=== PATIENT | female | born 1965 | race African-American/Black ===

== ENCOUNTER 2020-08-09 14:23 | Emergency (ER) | payer BC, SELFPAY ==
[2020-08-09 14:24] VITALS: BP 159/107; PULSE 101; RESP 18; TEMP 36.3; O2SAT 99
--- NOTE | 2020-08-09 14:47 | ECG_ITS ---
Measurements Intervals [place] Rate: 86 P: -10 [place]: 169 QRS: 48 QRSD: 91 T: 65 QT: 360 QTc: 433 Interpretive Statements SINUS RHYTHM NONSPECIFIC T-WAVE ABNORMALITY- HIGH LATERAL LEADS BASELINE WANDER- V4 BORDERLINE ECG Electronically Signed On 08-09-2020 18:05:03 CDT by Quan Harrington D.O.
--- NOTE | 2020-08-09 15:11 | ED.GENADULT ---
HPI - General Adult General Chief complaint: Extremity Injury, Upper Stated complaint: left arm pain and numbness Time Seen by Provider: 08/09/20 14:39 Source: patient and family Mode of arrival: ambulatory Limitations: no limitations History of Present Illness HPI narrative: Patient is a 55-year-old female who presents with left arm pain noting aching pain to the left shoulder trapezius musculature that radiates intermittently down the arm with some tingling and weakness patient notes that the symptoms began today and had a similar occurrence a week ago that was throughout the day and resolved. Patient denies injury trauma or similar occurrence in the past. Patient has not taken anything for her symptoms nothing is made the pain better or worse. Patient denies headache lightheadedness dizziness neck pain chest pain shortness of breath Related Data Home Medications Medication Instructions Recorded Confirmed amlodipine 08/09/20 lorazepam 08/09/20 losartan-hydrochlorothiazide 1 tablet PO DAILY 08/09/20 venlafaxine mg PO 08/09/20 zolpidem 08/09/20 Allergies Allergy/AdvReac Type Severity Reaction Status Date / Time latex Allergy Unknown Itching Verified 08/09/20 14:26 Contrast Media Allergy Severe ITCHING Uncoded 08/09/20 14:26 Review of Systems Review of Systems: All systems reviewed & are unremarkable except as noted in HPI and below PMFSH Past Medical History Medical History (Updated 08/09/20 @ 15:39 by Reuben Swain PA-C) Anxiety Depression Social History Social History Smoking status: Light tobacco smoker Second hand tobacco smoke exposure: No Smoking end date: 11/21/12 Alcohol intake: never Gender identity (if verbalized by the patient): Female Exam Narrative: Exam Narrative: GENERAL: Well-appearing, well-nourished, and in no acute distress. HEAD: Normocephalic, atraumatic. EYES: PERRLA and EOMI. ENT: Nares clear, no rhinorrhea or epistaxis. Mucous membranes moist. Oropharynx without tonsillar hypertrophy exudate or other lesions. NECK: Supple. No adenopathy or masses. No carotid bruits or JVD CHEST: Clear to auscultation. No respiratory distress. No wheezes rales or rhonchi HEART: Regular rate and rhythm. No murmur heard. Normal peripheral pulses. EXTREMITIES: Normal range of motion. No edema. No cervical or thoracic tenderness to palpation. Patient notes some tenderness of the trapezius musculature but denies any tenderness of the shoulder elbow or remainder of the left upper extremity SKIN: Warm, dry, no rash. NEURO: No focal deficits. Alert and oriented x3. Neurovascularly intact. Capillary refill less than 2 seconds PSYCH: Normal mood and affect. Course Course Emergency Course: Patient was given medications in the emergency department with improvement patient felt appropriate for outpatient reevaluation with likely musculoskeletal etiology of her symptoms will be referred to her orthopedist and primary care for continued evaluation and provided with reasons to return Vital Signs Vital signs: Vital Signs Temperature 97.4 F L 08/09/20 14:24 Pulse Rate 101 H 08/09/20 14:24 Respiratory Rate 18 08/09/20 14:24 Blood Pressure 159/107 H 08/09/20 14:24 Pulse Oximetry 99 08/09/20 14:24 Temperature 97.4 F L 08/09/20 14:24 Pulse Rate 101 H 08/09/20 14:24 Respiratory Rate 18 08/09/20 14:24 Blood Pressure 159/107 H 08/09/20 14:24 Pulse Oximetry 99 08/09/20 14:24 Medical Decision Making MDM Narrative Medical decision making narrative: Patients injury or pain is consistent with musculoskeletal etiology. No signs of neurological or vascular compromise on exam. Compartments and tisues are soft without signs of compartment syndrome. Pain is felt appropriate for further evaluation on an outpatient basis. Vital Signs Vital Signs: Vital Signs Temperature 97.4 F L 08/09/20 14:24 Pulse Rate 10
[2020-08-09] MEDS: KETOROLAC (*BKC) 60 MG/2 ML VIAL IM (15:30)
[2020-08-09] MEDS: diazePAM (*CRX) 5 MG TABLET PO (15:31)
[2020-08-09 16:04] VITALS: BP 136/76; PULSE 85; RESP 18; O2SAT 97
== END 2020-08-09 16:06 | disposition home or self-care (01) ==
PROVIDERS: Emergency Provider Emergency Medicine; PCP Family Medicine
DX: M79.602 Pain in left arm (principal); R94.31 Abnormal electrocardiogram [ECG] [EKG]
CPT/HCPCS: 93005; 96372; 99283; A9270; J1885

== ENCOUNTER 2020-09-02 12:35 | Outpatient (CLI) | payer BC, SELFPAY ==
--- NOTE | ~2020-09-02 | XR_ITS ---
EXAMINATION: XR shoulder LT min 2V DATE: 09/02/2020 13:04 INDICATION: Left arm pain. TECHNIQUE: 5 views of left shoulder were obtained. COMPARISON: None. FINDINGS: Bone alignment is normal. No fracture. There is mild osteoarthritis of glenohumeral joint. Acromioclavicular joint is normal. IMPRESSION: 1. Mild glenohumeral joint osteoarthritis. Reviewed, dictated and finalized at location A.
--- NOTE | ~2020-09-02 | XR_ITS ---
EXAMINATION:XR_[id number]_CR DATE: 09/02/2020 13:04 INDICATION: Neck pain TECHNIQUE: AP, lateral, and odontoid views of the cervical spine are provided. COMPARISON: None FINDINGS: Alignment is normal. The odontoid is intact. No fracture is identified. The vertebral body heights are maintained. There is moderate loss of intervertebral disc space height at C5-6 and C6-7. Small degenerative osteophytes project from the anterior endplates of multiple vertebral bodies. Ther e is mild facet and uncovertebral joint osteoarthritis. Prevertebral soft tissues are normal. IMPRESSION: 1. Mild to moderate cervical spondylosis without acute findings. Reviewed, dictated and finalized at location A.
== END 2020-09-02 12:36 | disposition home or self-care (01) ==
PROVIDERS: PCP Family Medicine; Visit Provider Family Medicine
DX: M19.012 Primary osteoarthritis, left shoulder (principal); M47.812 Spondylosis without myelopathy or radiculopathy, cervical region
CPT/HCPCS: 72040; 73030

== ENCOUNTER → 2021-05-19 15:37 | Outpatient (CLI) | payer BC, SELFPAY ==
--- NOTE | ~2021-05-19 | MM_ITS ---
EXAMINATION: MM screening tri BI w osiel HISTORY: Screening TECHNIQUE: Craniocaudal and mediolateral oblique 3-D tomosynthesis images were obtained and synthetic 2-D images were generated. CAD analysis was submitted and interpreted. COMPARISON: No prior mammogram is available for comparison at this institution. BREAST PARENCHYMAL COMPOSITION: The breasts are almost entirely fatty. FINDINGS: There are bilateral breast masses scattered throughout both breasts, most likely benign, al though comparison to previous mammograms recommended. IMPRESSION: 1. Probable benign bilateral breast masses. Recommend comparison to previous outside mammograms. BI-RADS Category 0: Incomplete: Needs additional imaging evaluation. Reviewed, dictated and finalized at location A. IMPRESSION: 1. Probable benign bilateral breast masses. Recommend comparison to previous ou ide mammograms. BI-RADS Category 0: Incomplete: Needs additional imaging evaluation.
== END ==
PROVIDERS: PCP Family Medicine; Visit Provider Family Medicine
DX: Z12.31 Encounter for screening mammogram for malignant neoplasm of breast (principal); R92.8 Other abnormal and inconclusive findings on diagnostic imaging of breast
CPT/HCPCS: 77063; 77067

== ENCOUNTER 2021-06-29 09:12 | Outpatient (CLI) | payer BC, SELFPAY ==
--- NOTE | ~2021-06-29 | MMUS_ITS ---
EXAMINATION: MM diagnostic tri RT w osiel, US breast RT limited HISTORY: Follow-up right breast mass TECHNIQUE: Additional 3-D tomosynthesis images of the right breast were performed and synthetic 2-D i mages were generated. CAD analysis was submitted and interpreted. High resolution Limited right breas t ultrasound was performed. COMPARISON: 05/19/2021 BREAST PARENCHYMAL COMPOSITION: Breast composition is almost entirely fatty. FINDINGS: MAMMOGRAPHIC FINDINGS: There is a 5 mm mass involving the medial aspect of the right breast, best seen on CC view. There are no suspicious calcifications or architectural distortion. ULTRASOUND: Limited right breast: At 3:00, 6 cm from the nipple, there is a 6 mm cyst. This corresponds to the ar ea of mammographic concern. No sonographic evidence for malignancy. IMPRESSION: 1. No evidence for malignancy in the right breast. 2. Routine yearly screening mammogram and regular clinical breast examination are recommended. BI-RADS Category 2: Benign finding(s). Reviewed, dictated and finalized at location A. IMPRESSION: 1. No evidence for malignancy in the right breast. 2. Routine yearly screening mammogram and regular clinical breast examination a re recommended. BI-RADS Category 2: Benign finding(s).
== END 2021-06-29 09:13 ==
PROVIDERS: PCP Family Medicine; Visit Provider Family Medicine
DX: R92.8 Other abnormal and inconclusive findings on diagnostic imaging of breast (principal)
CPT/HCPCS: 76642; 77061; 77065; G0279

== ENCOUNTER 2021-10-09 16:12 | Outpatient (CLI) | payer BC, SELFPAY ==
--- NOTE | ~2021-10-09 | CT_ITS ---
EXAMINATION: CT abdomen pelvis wo con DATE: 10/09/2021 16:36 INDICATION: Unspecified abdominal pain TECHNIQUE: Computed tomography (CT) of the abdomen and pelvis was performed without intravenous contr ast. Automated exposure control and iterative reconstruction technique were employed. The dose-length product was 855.85 mGy-cm. COMPARISON: None FINDINGS: A couple 3 mm nodules in the right lower lobe and lingula. Heart size is normal. No pericardial or pl eural effusion. Diffuse hepatic steatosis. Decompressed gallbladder, spleen, pancreas, bilateral adre nal glands and kidneys are normal. There is mild colonic diverticulosis with a sigmoid predominance. There is no adjacent inflammatory change to suggest diverticulitis. No bowel obstruction. The append ix is not visualized. No pericecal inflammatory change to suggest acute appendicitis. Small fat-conta ining umbilical hernia. Bladder is normal. The uterus is not identified and has likely been surgicall y resected. No free intraperitoneal gas or fluid. No pathologically enlarged abdominal or pelvic lymp hadenopathy. Mild degenerative skeletal changes in the spine and at the bilateral hips. Small bone is land at the right posterior iliac spine. IMPRESSION: 1. No acute intra-abdominal/pelvic process. 2. Diffuse hepatic steatosis. 3. Mild sigmoid diverticulosis. 4. Small fat-containing umbilical hernia. Reviewed, dictated and finalized at location A. 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
== END 2021-10-09 16:13 | disposition home or self-care (01) ==
LOC: ANHIMG 16:17
PROVIDERS: PCP Family Medicine; Visit Provider Family Medicine
DX: R10.9 Unspecified abdominal pain (principal); K76.0 Fatty (change of) liver, not elsewhere classified; K57.90 Diverticulosis of intestine, part unspecified, without perforation or abscess without bleeding; K42.9 Umbilical hernia without obstruction or gangrene
CPT/HCPCS: 74176

== ENCOUNTER 2022-04-24 19:35 | Emergency (ER) | payer BC, SELFPAY ==
--- NOTE | ~2022-04-24 | CT_ITS ---
EXAMINATION: CT abdomen pelvis wo con DATE: 04/24/2022 22:17 INDICATION: Hematuria TECHNIQUE: Computed tomography (CT) of the abdomen and pelvis was performed without intravenous contr ast. The dose-length product (DLP) was 884.68 mGy-cm. Automated exposure control and iterative recons truction technique were employed. COMPARISON: 10/09/2021 FINDINGS: A stable 3 mm nodule of the right lower lobe is consistent with old granulomatous disease. The heart size is normal. There is a small sliding hiatal hernia. The liver is diffusely low in atten uation when compared with the spleen, consistent with hepatic steatosis. The spleen, pancreas, gallbl adder, and adrenal glands are normal. The kidneys are unremarkable. No stones are identified in the k idneys, ureters, or bladder. There is no hydronephrosis or hydroureter. There is calcified atheroscle rosis of the aorta and many of the other arteries. No pathologically enlarged abdominal or pelvic lym ph nodes are identified. There is a small fat-containing umbilical hernia. IMPRESSION: 1. No CT correlate for the patient's symptoms. No urolithiasis identified. 2. Diffuse hepatic steatosis. Reviewed, dictated and finalized at location A.
[2022-04-24 20:04] VITALS: BP 149/84; PULSE 116; RESP 16; TEMP 36.6; O2SAT 100
--- NOTE | 2022-04-24 20:09 | PC.NURSE ---
pt reports she is unable to urinate at this time. It is straight blood. how do you think you will get a sample RN explained need for urine to test to check for blood and bacteria. Pt states she is unable to go at this time.
[2022-04-24 20:19] LABS: Basophils Percent Auto 0.3 % (0.2-1.2); Eosinophils Absolute Auto 0.1 K/mm3 (0-0.3); Eosinophils Percent Auto 0.7 % (0-4.4); Hematocrit 40.1 % (37.0-47.0); Hemoglobin 12.5 g/dL (12.0-15.0); Immature Granulocyte Absolute 0.06 K/mm3 (0.00-0.031); Immature Granulocyte Percent A 0.4 % (0-0.5); Lymphocytes Absolute Auto 4.21 K/mm3 (0.9-3.2); Lymphocytes Percent Auto 27.7 % (18.3-44.2); Mean Corpuscular HGB Conc 31.2 g/dl (32-36); Mean Corpuscular Hemoglobin 26.3 pg (26-34); Mean Corpuscular Volume 84.4 fl (80-100); Monocytes Absolute Auto 0.7 K/mm3 (0.1-0.6); Monocytes Percent Auto 4.6 % (2.6-8.5); Neutrophils Absolute Auto 10.1 K/mm3 (1.3-6.7); Neutrophils Percent Auto 66.3 % (45.5-73.1); Platelet Count Result 346 k/mm3 (150-375); Red Blood Count 4.75 M/mm3 (4.2-5.4); Red Cell Distribution Width 13.3 % (11.5-14.5); White Blood Count 15.2 K/mm3 (4.5-10.0)
[2022-04-24 20:34] LABS: Alanine Aminotransferase 41 U/L (6-35); Albumin Level 4.6 g/dL (3.5-5.1); Alkaline Phosphatase 78 U/L (38-126); Anion Gap 9 mmol/L (8-16); Aspartate Amino Transferase 40 U/L (14-36); Bilirubin,Total 0.3 mg/dL (0.2-1.3); Blood Urea Nitrogen 13 mg/dL (7-17); Carbon Dioxide 27 mmol/L (22-30); Chloride 101 mmol/L (98-107); Estimated CRCL calculation 59 ml/min; Estimated Glomerular Filt Rate 58; Glucose 187 mg/dL (65-110); Lipase 37 U/L (23-300); Sodium 137 mmol/L (137-145)
[2022-04-24 21:30] VITALS: BP 148/80; PULSE 98; RESP 18; O2SAT 98
--- NOTE | 2022-04-24 21:31 | ED.FEMALEGU ---
HPI - Female Genitourinary General Chief complaint: Urogenital-Female Stated complaint: peeing out blood Time Seen by Provider: 04/24/22 21:04 Source: patient and RN notes reviewed Mode of arrival: ambulatory Limitations: no limitations History of Present Illness HPI Narrative: This is an 57 year old female with history of hypertension who presents for evaluation of hematuria. She reports 5 hours ago she started having blood in her urine. She reports red blood with urine initially. The last 2 episode she is passing blood clots. She is now having increased urinary urgency but she is unable to urinate at this time. She is also reporting lower abdominal pain, pressure. She denies nausea, vomiting or back pain. She does not take any blood thinning medication. She denies previous history of similar episodes. MD elicited complaint: other (hematuria) Related Data Home Medications Medication Instructions Recorded Confirmed amlodipine 2.5 mg tablet 08/09/20 lorazepam 1 mg tablet 08/09/20 losartan 100 1 tablet PO DAILY 08/09/20 mg-hydrochlorothiazide 25 mg tablet venlafaxine 75 mg tablet,extended mg PO 08/09/20 release 24 hr zolpidem 10 mg tablet 08/09/20 Allergies Allergy/AdvReac Type Severity Reaction Status Date / Time latex Allergy Unknown Itching Verified 04/24/22 20:07 Contrast Media Allergy Severe ITCHING Uncoded 04/24/22 20:07 Review of Systems Review of Systems: All systems reviewed & are unremarkable except as noted in HPI and below Constitutional: Constitutional: Denies chills and Denies fatigue Cardiovascular: Cardiovascular: Denies chest pain and Denies rapid heart rate Respiratory: Respiratory: Denies chest congestion Gastrointestinal: Gastrointestinal: Reports abdominal pain, Denies bloating, Denies nausea and Denies vomiting Genitourinary: Genitourinary: Reports hematuria, Reports nocturia, Denies dysuria and Denies flank pain Musculoskeletal: Musculoskeletal: Denies back pain [facility] Past Medical History Medical History (Updated 04/25/22 @ 01:28 by Rosmery Guerrero MD) Anxiety Depression Surgical History Surgical History (Updated 04/25/22 @ 01:21 by Rosmery Guerrero MD) History of appendectomy Social History Social History Smoking status: Light tobacco smoker Second hand tobacco smoke exposure: No Smoking end date: 11/21/12 Alcohol intake: never Gender identity (if verbalized by the patient): Female Exam Const: General: no acute distress Nutritional Appearance: well nourished Orientation/consciousness: patient oriented x3 Limitations: no limitations HENMT: Head: normal to inspection Face and sinus: normal facial exam Eyes: EOM: EOMs intact bilaterally Resp: Effort & Inspection: normal respiratory effort Auscultation: clear to auscultation bilaterally and breath sounds present Cardio: Rate: tachycardic Rhythm: regular rhythm Heart sounds: no murmurs GI: GI Palp: Yes Soft to palpation, Yes Tenderness to palpation present (GI) (suprapubic), No Guarding due to palpation present (GI) and No Rigid due to palpation Auscultation: normal bowel sounds Urinary Catheter: Urinary Catheter: urine dark Back/Spine/Pelvis: Back: no CVA tenderness Skin: General skin exam: normal color Rashes: no rashes Neuro: General: patient oriented x3, moves all extremities and CN's II-XI intact bilaterally Cranial nerves: Yes Nystagmus not present Speech: normal speech Psych: Appearance: grossly normal Mental Status: mental status grossly normal Affect: normal affect Course Reevaluation(s) Reevaluation #1: PAtient is having some intermittent bladder spasm . She had catheter placed for CBI. Urine has been orange, no clots. Bag 1 finished and urine does not have any karina blood. I discussed with patient options and discharge plan. She wants to try with catheter out and treat cysti
[2022-04-24 21:56] LABS: Add Urine Microscopic? YES; Appearance Urine Turbid (Clear); Bilirubin Urine 2+ (Negative); Blood Urine 3+ (Negative); Color Urine Red (Yellow); Glucose Urine UA 1+ mg/dL (Negative); Ketones Urine 1+ mg/dL (Negative); Leukocyte Esterase Ur 3+ LEU/UL (Negative); Nitrate Urine Positive (Negative); Protein Urine 3+ mg/dL (Negative); Specific Grav Ur 1.015 (1.001-1.035)
[2022-04-24] MEDS: ONDANSETRON INJ 4 MG/2 ML VIAL IV PUSH (22:02)
[2022-04-24] MEDS: SODIUM CHLORIDE 0.9% IV 1,000 ML 999 ML IV CONT (22:02)
[2022-04-24] MEDS: MORPHINE SULFATE (*CRX) 4 MG/ML INJ IV PUSH (22:03)
[2022-04-24 22:04] LABS: RBC Urine >75 /hpf (0-2); WBC Urine 51-75 /hpf (0-3)
[2022-04-24 22:05] LABS: Squamous Epithelial Cell Urine Few /hpf (Few)
[2022-04-24 22:06] LABS: Bacteria Urine Trace /hpf
[2022-04-25 00:12] VITALS: BP 157/77; PULSE 89; RESP 18; O2SAT 98
[2022-04-25 01:41] VITALS: BP 148/72; PULSE 88; RESP 16; O2SAT 99
[2022-04-25 01:58] VITALS: BP 148/72; PULSE 88; RESP 18; O2SAT 99
== END 2022-04-25 02:01 | disposition home or self-care (01) ==
PROVIDERS: Emergency Medicine; Emergency Provider General Practice; PCP Family Medicine
DX: N30.01 Acute cystitis with hematuria (principal); I10 Essential (primary) hypertension; F41.9 Anxiety disorder, unspecified; F32.A Depression, unspecified; Z87.891 Personal history of nicotine dependence; K76.0 Fatty (change of) liver, not elsewhere classified
CPT/HCPCS: 36415; 51701; 74176; 80053; 81001; 83690; 85025; 87077; 87086; 87186; 96361; 96365; 96375; 99284; J0696; J2270; J2405; J7030

== ENCOUNTER 2022-04-25 21:16 | Observation (INO) | payer BC, SELFPAY ==
--- NOTE | ~2022-04-25 | NM_ITS ---
EXAMINATION: NM tomas stress w perfusion DATE: 04/26/2022 15:41 CDT INDICATION: Chest pain. Elevated troponin. TECHNIQUE: Rest images were obtained following intravenous administration of 9 mCi Tc99m tetrofosmin (Myoview). The patient was infused intravenously with Lexiscan (regadenoson). Then, 27.9 mCi Tc99m te trofosmin (Myoview) was administered intravenously, and stress images were obtained. Data was reconst ructed into short axis and horizontal and vertical long axis SPECT images. Gated SPECT images were al so obtained. COMPARISON: None. FINDINGS: There is no definite reversible or fixed perfusion abnormality to suggest ischemia or infar ction. There is no segmental wall motion abnormality. Left ventricular ejection fraction measures 7 4%. IMPRESSION: 1. No definite ischemia or infarct. 2. Normal left ventricular ejection fraction measuring 74%. Reviewed, dictated and finalized at location B.
--- NOTE | ~2022-04-25 | XR_ITS ---
EXAMINATION: XR chest 2V DATE: 04/25/2022 21:52 INDICATION: Tachycardia. Shortness of breath. TECHNIQUE: Frontal and lateral views of the chest were obtained. COMPARISON: Chest 2 views 05/03/2012, CT abdomen and pelvis 04/24/2022 FINDINGS: The chest demonstrates clear lungs without pneumonia, pleural effusion, or pneumothorax. Th e heart size is normal. IMPRESSION: 1. No acute cardiopulmonary disease. Reviewed, dictated and finalized at location A.
--- NOTE | 2022-04-25 21:23 | ECG_ITS ---
Measurements Intervals [place] Rate: 160 P: [place]: 0 QRS: 60 QRSD: 119 T: -11 QT: 257 QTc: 419 Interpretive Statements ATRIAL TACHYCARDIA WITH RAPID VENTRICULAR RESPONSE MODERATE INTRAVENTRICULAR CONDUCTION DELAY [110+ ms QRS DURATION] NONSPECIFIC ST & T-WAVE ABNORMALITY ABNORMAL ECG COMPARED TO ECG 08/09/2020 15:20:23 ATRIAL TACHYCARDIA NOW PRESENT INTRAVENTRICULAR CONDUCTION DELAY NOW PRESENT T-WAVE ABNORMALITY NOW PRESENT Electronically Signed On 04-26-2022 10:22:45 CDT by Martín Witt M.D.
[2022-04-25 21:43] LABS: Basophils Percent Auto 0.3 % (0.2-1.2); Eosinophils Absolute Auto 0.1 K/mm3 (0-0.3); Eosinophils Percent Auto 0.7 % (0-4.4); Hematocrit 40.3 % (37.0-47.0); Hemoglobin 12.5 g/dL (12.0-15.0); Immature Granulocyte Absolute 0.05 K/mm3 (0.00-0.031); Immature Granulocyte Percent A 0.4 % (0-0.5); Lymphocytes Absolute Auto 3.91 K/mm3 (0.9-3.2); Lymphocytes Percent Auto 29.2 % (18.3-44.2); Mean Corpuscular Hemoglobin 26.5 pg (26-34); Mean Corpuscular Volume 85.4 fl (80-100); Mean Platelet Volume 10.2 fl (7.4-10.4); Monocytes Absolute Auto 0.6 K/mm3 (0.1-0.6); Monocytes Percent Auto 4.4 % (2.6-8.5); Neutrophils Absolute Auto 8.7 K/mm3 (1.3-6.7); Platelet Count Result 365 k/mm3 (150-375); Red Blood Count 4.72 M/mm3 (4.2-5.4); Red Cell Distribution Width 13.4 % (11.5-14.5); White Blood Count 13.4 K/mm3 (4.5-10.0)
[2022-04-25 21:52] LABS: Chloride 105 mmol/L (98-107)
[2022-04-25 21:59] LABS: Partial Thromboplastin Time 36.1 SECONDS (22.3-36.8)
[2022-04-25 22:01] LABS: Alanine Aminotransferase 52 U/L (6-35); Albumin Level 4.5 g/dL (3.5-5.1); Alkaline Phosphatase 72 U/L (38-126); Anion Gap 9 mmol/L (8-16); Aspartate Amino Transferase 35 U/L (14-36); Bilirubin,Total 0.2 mg/dL (0.2-1.3); Blood Urea Nitrogen 14 mg/dL (7-17); Calcium 8.6 mg/dL (8.4-10.2); Carbon Dioxide 24 mmol/L (22-30); Estimated CRCL calculation 65 ml/min; Estimated Glomerular Filt Rate > 60; Glucose 259 mg/dL (65-110); Lipase 33 U/L (23-300); Sodium 138 mmol/L (137-145)
[2022-04-25] MEDS: ASPIRIN 81 MG CHEWABLE TABLET 324 MG PO (22:08)
[2022-04-25 22:09] LABS: Troponin I 0.098 ng/mL (0.000-0.034)
[2022-04-25] MEDS: SODIUM CHLORIDE 0.9% IV 500 ML 999 ML IV CONT (22:09)
[2022-04-25 22:12] VITALS: BP 129/78; PULSE 155; RESP 17; O2SAT 96
[2022-04-25 22:46] VITALS: PULSE 148
[2022-04-25] MEDS: METOPROLOL TARTRATE INJ 5 MG/5 ML VIAL IV PUSH (22:46)
[2022-04-25 22:47] VITALS: BP 122/71; PULSE 131; RESP 20; TEMP 37.4; O2SAT 96
[2022-04-25] MEDS: SODIUM CHLORIDE 0.9% IV 1,000 ML 999 ML IV CONT (22:48)
[2022-04-25] MEDS: ACETAMINOPHEN 500 MG TABLET 1000 MG PO (22:48)
--- NOTE | 2022-04-25 22:57 | ECG_ITS ---
Measurements Intervals [place] Rate: 86 P: 31 SC: 170 QRS: 62 QRSD: 89 T: 37 QT: 362 QTc: 435 Interpretive Statements SINUS RHYTHM NORMAL ECG COMPARED TO ECG 04/25/2022 21:26:35 SINUS RHYTHM NOW PRESENT Electronically Signed On 04-26-2022 10:24:18 CDT by Martín Witt M.D.
--- NOTE | 2022-04-25 22:57 | ED.ARRPALP ---
HPI - Arrhythmia/Palpitations General Chief Complaint: Arrhythmia/Palpitations Stated Complaint: increased HR Time Seen by Provider: 04/25/22 21:41 Source: patient History of Present Illness HPI narrative: Patient presents with not feeling well and a fast heart rate. Family reports she was seen here last night diagnosed with a UTI and has been taking her antibiotics however today she was sitting on the couch and was generally does not feeling well also reported feeling her heart rate going very fast she took her heart rate at home with her blood pressure monitor. She was monitoring her symptoms at home however they were not resolving so she came to the ER for further evaluation. I deferred she feels just not right and feels like her heart is going fast. She denies any fevers, cough, ingestion, lightheadedness, dizziness. Denies prior history of cardiac disease or arrhythmias she denies prior history of blood clots Related Data Home Medications Medication Instructions Recorded Confirmed amlodipine 2.5 mg tablet 2.5 mg PO HS 08/09/20 04/26/22 lorazepam 1 mg tablet See Rx Instructions .Route 08/09/20 04/26/22 .COMPLEX PRN Anxiety losartan 100 1 tablet PO HS 08/09/20 04/26/22 mg-hydrochlorothiazide 25 mg tablet zolpidem 10 mg tablet 10 mg PO HS PRN Sleep 08/09/20 04/26/22 metformin 500 mg tablet,extended 500 tablet PO HS 04/26/22 04/26/22 release 24 hr prednisone 20 mg tablet 40 tablet PO DAILY PRN Allergic 04/26/22 04/26/22 Reaction venlafaxine 225 mg tablet,extended 225 tablet PO HS 04/26/22 04/26/22 release 24 hr Allergies Allergy/AdvReac Type Severity Reaction Status Date / Time latex Allergy Unknown Itching Verified 04/26/22 01:26 Contrast Media Allergy Severe ITCHING Uncoded 04/26/22 01:26 Review of Systems Review of Systems: CONSTITUTIONAL: Denies fever, chills, or sweats. EYES: Denies visual changes, redness, or discharge. ENT: Denies rhinorrhea, congestion, sore throat, or otalgia. CARDIOVASCULAR: Denies chest pain, or edema. RESPIRATORY: Denies cough or dyspnea. GASTROINTESTINAL: Denies abdominal pain, nausea, vomiting, or diarrhea. GENITOURINARY: Denies dysuria or hematuria. SKIN: Denies rash or itching. MUSCULOSKELETAL: Denies back pain, joint pain, or myalgia. NEUROLOGIC: Denies headache, numbness, dizziness, or weakness. PSYCHIATRIC: Denies anxiety or depression. All systems reviewed & are unremarkable except as noted in HPI and below PMFSH Past Medical History Medical History Anxiety Depression Surgical History Surgical History History of appendectomy Family History Family History Mother Hypercholesteremia Sibling Diabetes mellitus Fibroid tumor Sibling Irritable bowel syndrome (IBS) Sibling Hypertension Diabetes mellitus Social History Social History Smoking packs per day: 0.4 Smoking cigarettes per day: 8.0 Years smoked: 25 Smoking pack-years: 10.00 Smoking status: Former smoker Tobacco type: cigarettes Second hand tobacco smoke exposure: No Smoking end date: 11/21/12 Alcohol intake: never Substance use: never Substance use type: does not use Gender identity (if verbalized by the patient): Female Spiritual care concerns: No Exam Narrative: GENERAL: Well-appearing, well-nourished, and in no acute distress. HEAD: Normocephalic, atraumatic. EYES: PERRLA and EOMI. ENT: Nares clear, no rhinorrhea or epistaxis. Mucous membranes moist. NECK: Supple. No masses. No JVD CHEST: Clear to auscultation. No respiratory distress. No wheezes rales or rhonchi HEART: Regular tachycardia. No murmur heard. Normal peripheral pulses. ABDOMEN: Soft, nontender, nondistended, normal active bowel sounds. EXTREMITIES: Normal range of motion.
[2022-04-25] MEDS: oxyCODONE/ACETAMINOPHEN (*CRX) 5-325 MG TABLET 1 TABLET PO (23:20)
[2022-04-26] VITALS (16 sets, daily range): BP systolic 109–139; BP diastolic 59–74; PULSE 69–102; RESP 17–22; TEMP 36.5–36.8; O2SAT 96–99; BMI 34.4
--- NOTE | 2022-04-26 | ECHO_ITS ---
Patient Info Name: Karime Vale Age: 57 years : 1965 Gender: Female Ht: 62 in Wt: 188 lbs BSA: 1.97 m2 HR: 88 bpm BP: 135 / 64 mmHg Heart Rhythm: Sinus Rhythm Technical Quality: Good Exam Date: 04/26/2022 1:35 PM Exam Location: [facility] Patient Status: Outpatient Admit Date: 04/25/2022 Staff Ordering Physician: Topher Romero MD Jet Dyeing Machine Tender: Malu Ward RDCS Attending Provider: Carlos Funez MD Referring Physician: Nick ROWLEY; Exam Type: CA echo doppler color flow Study Info Indications R00.2 - Palpitations Complete two-dimensional, color flow and Doppler transthoracic echocardiogram is performed. Summary 1. Complete two-dimensional, color flow and Doppler transthoracic echocardiogram is performed. 2. Normal LV size, mild LVH, normal LV systolic function, ejection fraction about 70%. Normal diastolic function. Normal mitral valve structure, trivial MR. Normal aortic valve structure, no significant stenosis. Trivial TR, RVSP 40 mmHg. Sinus rhythm. Left Ventricle Left ventricular chamber dimension is normal. Left ventricular systolic function is normal, estimated at >70%. There is mildly increased left ventricular wall thickness. The left ventricular diastolic function is normal. Right Ventricle Right ventricular chamber dimension is normal. Right ventricular systolic function is normal. Left Atria Left atrial chamber dimension is mildly enlarged. Right Atria Right atrial chamber dimension is normal. Aortic Valve The aortic valve is normal. There is no aortic valve sclerosis. There is no aortic valve regurgitation. Pulmonic Valve The pulmonic valve is normal. There is no pulmonic regurgitation. Mitral Valve The mitral valve has normal leaflets. There is trace mitral valve regurgitation. Tricuspid Valve The tricuspid valve leaflets are normal. There is trace tricuspid valve regurgitation. Mild pulmonary hypertension, estimated pulmonary arterial systolic pressure is 40 mmHg. Pericardium/Pleural The pericardium appears normal. There is no pericardial effusion. Inferior Vena Cava Dilated inferior vena cava with >50% collapse upon inspiration consistent with normal right atrial pressure, 10 mmHg. Aorta The aortic root size at the sinus of Valsalva is normal. The prox ascending aorta size is normal. Left Ventricular Outflow Tract Name Value Normal LVOT 2D LVOT Diameter 1.9 cm LVOT Doppler LVOT Peak Gradient 4 mmHg LVOT Mean Gradient 2 mmHg LVOT VTI 22 cm LVOT VTI/AV VTI Ratio 0.7 LVOT Stroke Volume 60 ml LVOT CO 5.2 l/min LVOT CI 2.6 l/min/m2 Pulmonic Valve Name Value Normal RVOT Doppler
[2022-04-26 00:18] LABS: SARS-CoV-2 RNA PCR Negative
--- NOTE | 2022-04-26 00:45 | PM.IMHP ---
H&P: HPI History of Present Illness Date/Time: 04/26/22 00:45 Chief Complaint: Palpitations Narrative: This is a 57-year-old female with past medical history significant for hypertension, generalized anxiety, depression. Patient presented to emergency room for a 2nd time the night prior patient was diagnosed with urinary tract infection and given antibiotics and sent home comes back today brought in by her after having episode of pounding on her chest with diaphoresis and dizziness, lightheaded, chest pressure, nausea but no vomiting, no abdominal pain, this lasted for several minutes upon arrival to emergency room she was found to have a heart rate of 160 which resolved with beta-elvis injection. Patient denies having episodes like this in the past, she has some chills, poor appetite. Preliminary workup was significant for ECG with supraventricular tachycardia, urinalysis with numerous WBCs present in it, troponin elevation. At the time of my visit patient denied any discomfort. Decision has been made to admit the patient for further evaluation, management and treatment. Review of Systems Review of Systems: Pounding of the chest, lightheadedness, diaphoresis, poor appetite, chills, pain and burning with urination. Constitutional: Constitutional: Reports chills and Reports poor appetite Eyes: Eyes: Denies change in vision ENT: Denies dysphagia, Denies vertigo and Denies dizziness Cardiovascular: Cardiovascular: Reports chest pain, Denies syncope, Denies pedal edema, Reports irregular heart rhythm, Denies claudication, Reports lightheadedness, Denies radiating jaw, neck or arm pain, Reports palpitations, Denies dyspnea on exertion and Denies paroxysmal nocturnal dyspnea Respiratory: Respiratory: Denies chest congestion, Denies cough and Denies excessive phlegm production Gastrointestinal: Gastrointestinal: Denies abdominal pain, Denies dyspepsia, Denies heartburn, Denies diarrhea, Reports nausea and Denies vomiting Genitourinary: Genitourinary: Reports dysuria Musculoskeletal: Musculoskeletal: Denies arthralgias and Denies joint swelling Integumentary/Breasts: Skin/Breast: Denies rash Neurologic: Denies focal weakness and Denies Sensory deficit (Neuro) Psychiatric: Psychiatric: Reports no additional psychiatric complaints and Reports as per HPI Endocrine: Endocrine: Denies cold intolerance, Denies fatigue, Denies flushing, Denies heat intolerance, Denies polyphagia, Denies polydipsia and Denies palpitations Hematologic/Lymphatic: Hematologic/Lymphatic: Reports no additional hematologic/lymphatic complaints and Reports as per HPI Allergic/Immunologic: Allergic/Immunologic: Reports no additional allergic/immunologic complaints and Reports as per HPI PMFSH Past Medical History Medical History Anxiety Depression Surgical History Surgical History History of appendectomy Family History Family History Mother Hypercholesteremia Sibling Diabetes mellitus Fibroid tumor Sibling Irritable bowel syndrome (IBS) Sibling Hypertension Diabetes mellitus Social History Social History Smoking packs per day: 0.4 Smoking cigarettes per day: 8.0 Years smoked: 25 Smoking pack-years: 10.00 Smoking status: Former smoker Tobacco type: cigarettes Second hand tobacco smoke exposure: No Smoking end date: 11/21/12 Alcohol intake: never Substance use: never Substance use type: does not use Gender identity (if verbalized by the patient): Female Spiritual care concerns: No Meds Home Medications and Allergies Home Medications Medication Instructions Recorded Confirmed Type amlodipine 2.5 mg tablet 2.5 mg PO HS 08/09/20 04/26/22 History lorazepam 1 mg tablet See Rx Instru
--- NOTE | 2022-04-26 01:11 | ADMGEN ---
This patient, Karime Vale, was admitted to IMU Room 213-01 on 04/26/22 at 0105. Patient/family oriented to hospital policies and general routines including ID bracelet, bed and alarms, visiting hours, pain management, procedures, bathroom and other care routines, personal items, smoking policy, room service/diet, and visiting hours. Information on how to activate the Rapid Response Team has been discussed. Patient/Family are encouraged to report perceived risks to care and to ask questions if they do not understand what they are told or what they should do.
[2022-04-26] MEDS: SODIUM CHLORIDE 0.9% IV 1,000 ML 125 ML IV CONT ×2 (03:39→09:11)
[2022-04-26] MEDS: ENOXAPARIN 100 MG/ML SYRINGE 85 MG SUB-Q ×2 (03:40→21:34)
[2022-04-26] MEDS: ZOLPIDEM TARTRATE (*CRX) 5 MG TABLET 10 MG PO ×2 (03:46→21:39)
[2022-04-26 04:56] LABS: Troponin I 0.126 ng/mL (0.000-0.034)
--- NOTE | 2022-04-26 09:07 | PM.CNCAR ---
Assessment and Plan Assessment and plan (1) Elevated troponin: Code(s): R77.8 - Other specified abnormalities of plasma proteins Status: Acute Assessment and Plan: Most likely related to her sustained tachycardia at the time but cannot exclude underlying coronary disease. Will schedule a Lexiscan myocardial perfusion study for this morning. Aspirin 81 mg p.o. daily also be started. 2D echocardiogram Doppler is ordered and will be reviewed (2) Hypertension: Code(s): I10 - Essential (primary) hypertension Status: Acute Assessment and Plan: At goal. (3) Paroxysmal SVT (supraventricular tachycardia): Code(s): I47.1 - Supraventricular tachycardia Status: Acute Assessment and Plan: Appears to be atrial tachycardia. Back in sinus rhythm at this point. Responded to beta-elvis. Will discontinue her amlodipine and switch her to a beta-elvis with intention of treating her blood pressure and her SVT. Will start with 12.5 mg of metoprolol p.o. b.i.d.. Will also check a TSH, free T4 level and magnesium level. (4) Hyperglycemia: Code(s): R73.9 - Hyperglycemia, unspecified Status: Acute Assessment and Plan: A1c around 7%. She does have diabetes. Treatment per hospitalist (5) Urinary tract infection: Code(s): N39.0 - Urinary tract infection, site not specified Status: Acute Assessment and Plan: On antibiotics History of Present Illness History of Present Illness Consult date/time: 04/26/22 09:07 Reason For Visit: TACHYCARDIA Narrative: Requesting provider: Dr. Garrett Reason for consultation tachycardia, positive troponins Date of service 04/26/2022 History: Patient is a 57-year-old female who has hypertension, diabetes, depression and anxiety who presented to the hospital last night because of tachycardia. She had been to the ER the day before because of urinary tract symptoms and was started on antibiotics. Yesterday afternoon at about 4:00 p.m. she started developed constant tachycardia/elevated heart rates. Whenever she went walking she felt very sweaty lightheaded and had some heaviness on her chest. She was also short of breath. Her checked her heart rate and it was elevated and she came to the hospital for further evaluation. Heart rate was noted to be around 160 beats per minute and was in a supraventricular tachycardia/atrial tachycardia. She was given IV beta-elvis which to did slow heart rate down and convert her back to sinus rhythm. She states that she felt immediately better when back in sinus rhythm. She at baseline has some rare fluttering in her chest but nothing sustained. She has no syncope, paroxysmal nocturnal dyspnea, orthopnea, edema or exertional chest pain. Because of her above symptoms, troponins were also drawn which were slightly abnormal and have risen to 0.126. Follow-up EKG while in sinus rhythm is normal Review of Systems Review of Systems: All systems reviewed & are unremarkable except as noted in HPI and below Constitutional: Constitutional: Denies body ache(s) Eyes: Eyes: Denies blurry vision ENT: Reports Normal hearing present Cardiovascular: Cardiovascular: Reports chest pain and Reports diaphoresis Respiratory: Respiratory: Denies chest congestion Gastrointestinal: Gastrointestinal: Denies abdominal pain Genitourinary: Genitourinary: Reports dysuria Musculoskeletal: Musculoskeletal: Denies back pain Integumentary/Breasts: Skin/Breast: Denies breast pain and Denies skin pain Neurologic: Denies headache(s) Psychiatric: Psychiatric: Reports anxiety, Denies behavioral changes and Reports depression Endocrine: Endocrine: Denies excessive sweating Hematologic/Lymphatic: Hematologic/Lymphatic: Denies easy bleeding Allergic/Immunologic: Allergic/Immunologic: Denies GI upset with certain foods PMFSH Past Medical History Medical History (Reviewed 04/26/22 @ 09:11 by
[2022-04-26] MEDS: HYDROcodone/acetaminophen (*CRX) 5-325 MG TABLET 1 TAB PO ×3 (09:10→23:27)
--- NOTE | 2022-04-26 09:16 | EST_ITS ---
Patient Info Name: Karime Vale Age: 57 years : 1965 Gender: Female Ht: 62 in Wt: 200 lbs BSA: 2.04 m2 HR: 86 bpm BP: 141 / 77 mmHg Heart Rhythm: Sinus Rhythm Exam Date: 04/26/2022 2:30 PM Exam Location: [facility] Patient Status: Inpatient Admit Date: 04/25/2022 Staff Ordering Physician: Martín Witt MD Attending Provider: Carlos Funez MD Exercise Technologist: Neva Koehler CT Nurse: MARIANA RHODES Exam Type: [facility] stress tomas w NM Study Info Indications R74.8 - ELEVATED TROPONIN R07.9 - Chest pain, unspecified A regadenoson stress test was performed. Summary 1. No abnormal ST-T wave changes with lexiscan. Protocol: Lexiscan Stress ECG Details Stage: REST Duration (min): 0 min : 54 sec HR (bpm): 87 SBP (mmHg): 141 DBP (mmHg): 77 Stage: REST Duration (min): 4 min : 56 sec HR (bpm): 89 SBP (mmHg): 141 DBP (mmHg): 77 Stage: STAGE 1 Duration (min): 0 min : 59 sec HR (bpm): 108 SBP (mmHg): 106 DBP (mmHg): 58 Stage: RECOVERY Duration (min): 1 min : 0 sec HR (bpm): 104 SBP (mmHg): 106 DBP (mmHg): 58 Stage: RECOVERY Duration (min): 2 min : 0 sec HR (bpm): 103 SBP (mmHg): 106 DBP (mmHg): 58 Stage: RECOVERY Duration (min): 3 min : 0 sec HR (bpm): 102 SBP (mmHg): 133 DBP (mmHg): 63 Stage: RECOVERY Duration (min): 3 min : 46 sec HR (bpm): 102 SBP (mmHg): 133 DBP (mmHg): 63 Rest HR: 89 bpm Peak HR: 108 bpm Rest Sys BP: 141 mmHg Peak Sys BP: 133 mmHg Max Pred HR: 165 bpm % Max Pred HR: 65 % Target HR: 140 bpm Max RPP: 14,364 bpm*mmHg Total Time: 1 min : 0 sec Rest Srivastava BP: 77 mmHg Peak Srivastava BP: 63 mmHg Total Dose: 0.4 mg Resting ECG Normal sinus rhythm - normal ECG. Stress ECG No abnormal ST/T wave changes with exercise. Arrhythmias None. Report Signatures
[2022-04-26 10:01] LABS: Magnesium 1.9 mg/dL (1.6-2.3)
[2022-04-26 10:20] LABS: T4 Thyroxine 6.91 ug/dL (5.53-11.0)
--- NOTE | 2022-04-26 12:54 | PM.IMPN ---
Progress Note: A&P Assessment and Plan (1) Paroxysmal SVT (supraventricular tachycardia): Code(s): I47.1 - Supraventricular tachycardia Status: Acute Assessment and Plan: With heart rate in 160s on arrival. Resolved after IV beta-elvis Reviewed telemetry Echocardiogram pending Cardiology consulted. Plan for stress test noted (2) Elevated troponin: Code(s): R77.8 - Other specified abnormalities of plasma proteins Status: Acute Assessment and Plan: Likely due to SVT. Echocardiogram pending Plan for stress test On aspirin (3) Hypertension: Code(s): I10 - Essential (primary) hypertension Status: Acute Assessment and Plan: Will controlled Continue home meds (4) Urinary tract infection: Code(s): N39.0 - Urinary tract infection, site not specified Status: Acute Assessment and Plan: Patient started on Rocephin Cultures in progress Plan Hematuria on presentation suspected to be related UTI Now resolved with initiation of this treatment Urine culture with Enterobacter 10 K to 49 K await sensitivity Subjective Date/time seen: 04/26/22 12:54 Interval history: HPI:This is a 57-year-old female with past medical history significant for hypertension, generalized anxiety, depression.? Patient presented to emergency room for a 2nd time the night prior patient was diagnosed with urinary tract infection and given antibiotics and sent home comes back today brought in by her after having episode of pounding on her chest with diaphoresis and dizziness, lightheaded, chest pressure, nausea but no vomiting, no abdominal pain, this lasted for several minutes upon arrival to emergency room she was found to have a heart rate of 160 which resolved with beta-elvis injection.? Patient denies having episodes like this in the past, she has some chills, poor appetite.? Preliminary workup was significant for ECG with supraventricular tachycardia, urinalysis with numerous WBCs present in it, troponin elevation.? At the time of my visit patient denied any discomfort.? Decision has been made to admit the patient for further evaluation, management and treatment. 04/26/2022 feeling better. Telemetry reviewed. Denies any chest pain. Hematuria has resolved. Review of Systems Review of Systems: All systems reviewed & are unremarkable except as noted in HPI and below (HPI) Exam Narrative: GENERAL: The patient is well developed, not in acute distress HEENT: Nonicteric sclerae, PERRLA, EOMI. Oropharynx clear. Moist mucous membranes. Conjunctivae appear well perfused. CHEST: Chest wall is nontender. HEART: Regular rate and rhythm without murmur, rubs, or gallops LUNGS: Clear to auscultation bilaterally. no respiratory distress ABDOMEN: Soft, positive bowel sounds, non-tender, no organomegaly. SKIN: No rash, no excessive bruising, petechiae, or purpura. NEUROLOGIC: Cranial nerves II-XII intact, alert and oriented x 3, no gross motor deficits EXTREMITIES: no edema, cyanosis or clubbing Objective Data Vital Signs Vital Signs: Vital Signs - 24 hr 04/25/22 22:12 04/25/22 22:46 04/25/22 22:47 Temperature 99.3 F Pulse Rate 155 H 148 H 131 H Respiratory Rate 17 20 Blood Pressure 129/78 122/71 Pulse Oximetry 96 96 Oxygen Delivery 04/26/22 01:10 04/26/22 01:23 04/26/22 01:25 Temperature 97.9 F Pulse Rate 90 92 98 Respiratory Rate 17 18 Blood Pressure 116/73 134/74 Pulse Oximetry 96 99 Oxygen Delivery 04/26/22 01:25 04/26/22 02:00 04/26/22 04:00 Temperature 97.8 F Pulse Rate 92 90 89 Respiratory Rate 18 18 Blood Pressure 135/64 Pulse Oximetry 99 98 Oxygen Delivery Room Air 04/26/22 04:00 04/26/22 04:00 04/26/22 05:20 Temperature Pulse Rate 89 93 69 Respiratory Rate 18 Blood Pressure Pulse Oximetry 98 Oxygen Delivery Room Air 04/26/22 08:32 04/26/22 08:00 04/26/22 08:00 Temperature 97.7 F Pulse Rate 8
[2022-04-26] MEDS: hydroCHLOROthiazide 25 MG TABLET PO (21:37)
[2022-04-26] MEDS: METOPROLOL TARTRATE 12.5 MG TABLET PO (21:37)
[2022-04-26] MEDS: LOSARTAN POTASSIUM 100 MG TABLET PO (21:37)
[2022-04-26] MEDS: VENLAFAXINE HCL XR 75 MG CAP.ER.24H 225 MG PO (21:38)
[2022-04-27] VITALS: PULSE 114
[2022-04-27 04:00] VITALS: PULSE 83
[2022-04-27 05:31] VITALS: BP 151/83; PULSE 84; RESP 18; TEMP 36.4; O2SAT 99
[2022-04-27 06:23] LABS: Basophils Percent Auto 0.4 % (0.2-1.2); Eosinophils Absolute Auto 0.1 K/mm3 (0-0.3); Eosinophils Percent Auto 1.3 % (0-4.4); Hematocrit 36.1 % (37.0-47.0); Hemoglobin 11.3 g/dL (12.0-15.0); Immature Granulocyte Absolute 0.05 K/mm3 (0.00-0.031); Immature Granulocyte Percent A 0.5 % (0-0.5); Lymphocytes Absolute Auto 4.58 K/mm3 (0.9-3.2); Lymphocytes Percent Auto 48.2 % (18.3-44.2); Mean Corpuscular HGB Conc 31.3 g/dl (32-36); Mean Corpuscular Hemoglobin 26.5 pg (26-34); Mean Corpuscular Volume 84.7 fl (80-100); Mean Platelet Volume 10.5 fl (7.4-10.4); Monocytes Absolute Auto 0.6 K/mm3 (0.1-0.6); Monocytes Percent Auto 5.8 % (2.6-8.5); Neutrophils Absolute Auto 4.2 K/mm3 (1.3-6.7); Neutrophils Percent Auto 43.8 % (45.5-73.1); Platelet Count Result 320 k/mm3 (150-375); Red Blood Count 4.26 M/mm3 (4.2-5.4); Red Cell Distribution Width 13.5 % (11.5-14.5); White Blood Count 9.5 K/mm3 (4.5-10.0)
[2022-04-27 06:29] LABS: Alanine Aminotransferase 31 U/L (6-35); Albumin Level 4.1 g/dL (3.5-5.1); Alkaline Phosphatase 65 U/L (38-126); Anion Gap 5 mmol/L (8-16); Aspartate Amino Transferase 30 U/L (14-36); Bilirubin,Total 0.2 mg/dL (0.2-1.3); Blood Urea Nitrogen 17 mg/dL (7-17); Calcium 8.7 mg/dL (8.4-10.2); Carbon Dioxide 27 mmol/L (22-30); Chloride 105 mmol/L (98-107); Estimated CRCL calculation 84 ml/min; Estimated Glomerular Filt Rate > 60; Glucose 143 mg/dL (65-110); Magnesium 1.7 mg/dL (1.6-2.3); Sodium 137 mmol/L (137-145)
[2022-04-27 08:00] VITALS: BP 143/84; PULSE 81; PULSE 82; RESP 18; TEMP 35.8; O2SAT 97
[2022-04-27 08:31] VITALS: PULSE 85
[2022-04-27] MEDS: METOPROLOL TARTRATE 12.5 MG TABLET PO (08:31)
[2022-04-27] MEDS: ENOXAPARIN 100 MG/ML SYRINGE 85 MG SUB-Q (08:32)
[2022-04-27] MEDS: ASPIRIN 81 MG ENTERIC TABLET PO (08:32)
[2022-04-27] MEDS: HYDROcodone/acetaminophen (*CRX) 5-325 MG TABLET 1 TAB PO (08:37)
--- NOTE | 2022-04-27 10:59 | PM.PNCARD ---
Progress Note: A&P Assessment and Plan (1) Elevated troponin: Code(s): R77.8 - Other specified abnormalities of plasma proteins Status: Acute Assessment and Plan: Most likely related to her sustained tachycardia at the time but cannot exclude underlying coronary disease. Lexiscan negative for ischemia or infarct, EF 74% Echo showing Normal LV size, mild LVH, normal LV systolic function, ejection fraction about 70%. Normal diastolic function. Normal mitral valve structure, trivial MR. Normal aortic valve structure, no significant stenosis. Trivial TR, RVSP 40 mmHg. ASA 81mg daily started (2) Hypertension: Code(s): I10 - Essential (primary) hypertension Status: Acute Assessment and Plan: At goal. (3) Paroxysmal SVT (supraventricular tachycardia): Code(s): I47.1 - Supraventricular tachycardia Status: Acute Assessment and Plan: Appears to be atrial tachycardia. Back in sinus rhythm at this point. Responded to beta-elvis. Will discontinue her amlodipine and switch her to a beta-elvis with intention of treating her blood pressure and her SVT. Continue 12.5 mg of metoprolol p.o. b.i.d. TSH, T4, mag WNL (4) Hyperglycemia: Code(s): R73.9 - Hyperglycemia, unspecified Status: Acute Assessment and Plan: A1c around 7%. She does have diabetes. Treatment per hospitalist (5) Urinary tract infection: Code(s): N39.0 - Urinary tract infection, site not specified Status: Acute Assessment and Plan: On antibiotics Subjective Date/time seen: 04/27/22 10:59 Interval history: Feels well this morning. Denies any palpitations or chest pain. Eager to go home. Review of Systems Review of Systems: All systems reviewed & are unremarkable except as noted in HPI and below Constitutional: Constitutional: Denies body ache(s), Denies excessive sweating and Denies headache(s) Eyes: Eyes: Denies blurry vision ENT: Reports Normal hearing present and Denies headache(s) Cardiovascular: Cardiovascular: Reports chest pain and Reports diaphoresis Respiratory: Respiratory: Denies chest congestion Gastrointestinal: Gastrointestinal: Denies abdominal pain Genitourinary: Genitourinary: Reports dysuria Musculoskeletal: Musculoskeletal: Denies back pain Integumentary/Breasts: Skin/Breast: Denies breast pain and Denies skin pain Neurologic: Reports Normal hearing present, Denies behavioral changes and Denies headache(s) Psychiatric: Psychiatric: Reports anxiety, Denies behavioral changes and Reports depression Endocrine: Endocrine: Denies excessive sweating Hematologic/Lymphatic: Hematologic/Lymphatic: Denies easy bleeding Allergic/Immunologic: Allergic/Immunologic: Denies GI upset with certain foods Exam Narrative: Awake alert oriented. Appears to be in no acute distress. Appears stated age Const: General: comfortable; No in distress HENMT: General nose exam: Normal nares present Mouth: Yes moist mucous membranes Eyes: Sclera: sclerae normal Neck: Neck: supple Thyroid: thyroid normal Chest: Other: No reproducible chest wall pain to palpation Resp: Effort & Inspection: normal respiratory effort Auscultation: clear to auscultation bilaterally Cardio: Rate: regular rate and not tachycardic Rhythm: regular rhythm Heart sounds: no murmurs GI: Auscultation: normal bowel sounds Skin: General skin exam: normal color Neuro: Cranial nerves: Yes Normal hearing present Speech: normal speech Sensory Exam: normal sensation Extrem: General: normal to inspection and no edema Psych: Mental Status: mental status grossly normal Objective Data Vital Signs Vital Signs: Vital Signs - 24 hr 04/26/22 12:00 04/26/22 12:00 04/26/22 12:00 Temperature 36.7 C Pulse Rate 85 82 Respiratory Rate 20 Blood Pressure 109/59 L Pulse Oximetry 96 Oxygen Delivery Room Air 04/26/22 14:47 04/26/22 14:00 06
[2022-04-27 12:00] VITALS: PULSE 74
--- NOTE | 2022-04-27 13:33 | PM.DS ---
DS: Admitting Diagnosis Discharge Date 04/27/22 Admitting Diagnosis Palpitations DS: Discharge Diagnosis Discharge Diagnosis (1) Paroxysmal SVT (supraventricular tachycardia): Code(s): I47.1 - Supraventricular tachycardia Status: Acute (2) Elevated troponin: Code(s): R77.8 - Other specified abnormalities of plasma proteins Status: Acute (3) Hypertension: Code(s): I10 - Essential (primary) hypertension Status: Acute (4) Urinary tract infection: Code(s): N39.0 - Urinary tract infection, site not specified Status: Acute (5) Hematuria: Code(s): R31.9 - Hematuria, unspecified Status: Acute (6) Diabetes mellitus: Code(s): E11.9 - Type 2 diabetes mellitus without complications Status: Acute DS: Summary Hospital Course Reason for hospitalization: 57yo female with HTN and DM here for palpitations. Parviz see H&P for details Hospital Course: Patient presents to the emergency room with complaints of palpitations. EKG showed atrial tachycardia with RVR and moderate intraventricular conduction delay. She was recently in the emergency room with gross hematuria that was cleared with the [facility]. She was able be discharged home with cefuroxime for possible UTI. She was given IV fluids and Lopressor her heart rate improved. Repeat EKG showing normal sinus rhythm. White count was elevated. She was treated with Rocephin possible UTI. Urine culture growing Klebsiella but only 10-49K colonies noted. It was sensitive to Rocephin but not cefazolin. Her troponin was elevated to 0.126 felt related to the SVT. Glucose was elevated to 59. Her A1c has been about 7. She has been told that she does have diabetes is currently on metformin. Glucose became better controlled. She is to follow up with her PCP. She was educated about the benefits of leading a healthy lifestyle. Her amlodipine was held. She was started on Lopressor. She underwent Lexiscan stress test which showed no abnormal ST T wave changes. The nuclear images showed no definitive reversible or fixed perfusion abnormalities to suggest ischemia or infarct. The EF was 74%. Echocardiogram showed EF of about 70% with normal LV systolic function and normal diastolic function. Patient remained on telemetry. She had no further episodes. She is requesting discharge. Overall she did well was able to be discharged home on 04/27/2022. Status at Discharge Cognitive/behavioral status at discharge: Stable Time Spent with Patient Time attestation: Total time spent providing and/or coordinating discharge services: 35 minutes Time spent: Greater than 30 minutes Exam Narrative: AF 96.4 143/84 74 189 97% ra Gen - NARD Chest - CTA bilaterally, nml RR CV - RRR S1/S2. Telemetry showing PVCs Abd - Soft, NT/ND, Positive BS Ext - No pedal edema Neuro - Alert and oriented. Nonfocal exam. Psych - Nml mood and affect Skin - Warm and dry DS: Data Data Completed and Pending Labs on day of discharge: Labs from last 24 hours 04/27/22 04/27/22 05:52 05:52 WBC 9.5 RBC 4.26 Hgb 11.3 L Hct 36.1 L MCV 84.7 MCH 26.5 MCHC 31.3 L RDW 13.5 Plt Count 320 MPV 10.5 H Immature Gran % (Auto) 0.5 Neut % (Auto) 43.8 L Lymph % (Auto) 48.[address] [place] % (Auto) 5.8 Eos % (Auto) 1.3 Baso % (Auto) 0.4 Lymph # (Auto) 4.[address] [place] # (Auto) 0.6 Eos # (Auto) 0.1 Baso # (Auto) 0.0 Abs Immat Gran (auto) 0.05 H Absolute Neuts (auto) 4.2 Absolute Nucleated RBC 0.0 Nucleated RBC % 0.0 Sodium 137 Potassium 4.0 Chloride 105 Carbon Dioxide 27 Anion Gap 5 L BUN 17 Creatinine 0.70 Estim Creat Clear Calc 84 Estimated GFR > 60 Glucose 143 H Calcium 8.7 Magnesium 1.7 Total Bilirubin 0.2 AST 30 ALT 31 Alkaline Phosphatase 65 Total Protein 7.0 Albumin 4.1 Discharge Plan Discharge Attending physician on discharge: Rory
== END 2022-04-27 14:10 | disposition home or self-care (01) ==
LOC: ANHED 23:22 → ANHIMU 04-26 03:47 → ANH3MEDSUR 04-27 06:42 → ANHIMU 04-28 15:00
PROVIDERS: Internal Medicine Cardiovascular Disease; Admitting Provider Internal Medicine; Emergency Provider Emergency Medicine; PCP Family Medicine; Visit Provider Internal Medicine
DX: I47.1 Supraventricular tachycardia (principal); N39.0 Urinary tract infection, site not specified; E11.9 Type 2 diabetes mellitus without complications; I10 Essential (primary) hypertension; R77.8 Other specified abnormalities of plasma proteins; F41.9 Anxiety disorder, unspecified; F32.A Depression, unspecified; Z87.891 Personal history of nicotine dependence; Z20.822 Contact with and (suspected) exposure to COVID-19
CPT/HCPCS: 36415; 71046; 78452; 80053; 83690; 83735; 84436; 84443; 84484; 85025; 85610; 85730; 93005; 93017; 93306; 96361; 96365; 96372; 96375; 99285; A9270; A9502; C9803; G0378; J0696; J1650; J2785; J7030; J7040; U0003; U0005

== ENCOUNTER → 2022-09-30 16:06 | Outpatient (CLI) | payer BC, SELFPAY ==
--- NOTE | ~2022-09-30 | MM_ITS ---
EXAMINATION: MM screening tri BI w osiel HISTORY: Screening mammogram TECHNIQUE: Craniocaudal and mediolateral oblique 3-D tomosynthesis images were obtained and synthetic 2-D images were generated. CAD analysis was submitted and interpreted. COMPARISON: 06/29/2021 diagnostic right mammogram and limited right breast ultrasound examination 05/19/2021, 11/11/2017 bilateral screening mammogram examinations BREAST PARENCHYMAL COMPOSITION: The breasts are almost entirely fatty. FINDINGS: There is no evidence of suspicious mass, calcification, or architectural distortion to sugg est malignancy in either breast. There has been no suspicious interval change. IMPRESSION: 1. No mammographic evidence of malignancy. 2. Recommend routine screening mammography in one year. BI-RADS Category 1: Negative Reviewed, dictated and finalized at location A. EMBRYOLOGIST
== END ==
PROVIDERS: PCP Family Medicine; Visit Provider Family Medicine
DX: Z12.31 Encounter for screening mammogram for malignant neoplasm of breast (principal)
CPT/HCPCS: 77063; 77067

== ENCOUNTER 2023-09-07 17:32 | Emergency (ER) | payer BC, SELFPAY ==
[2023-09-07 17:38] VITALS: BP 153/78; PULSE 99; RESP 17; TEMP 36.4; O2SAT 99
--- NOTE | 2023-09-07 17:45 | PC.NURSE ---
patient blood glucose 513 in triage
[2023-09-07 17:46] LABS: Glucose Point of Care > 500 mg/dl (65-105)
== END 2023-09-07 21:18 | disposition left against medical advice (07) ==
PROVIDERS: Emergency Provider Emergency Medicine; PCP Family Medicine
DX: R73.9 Hyperglycemia, unspecified (principal)
CPT/HCPCS: 82948; 99199

== ENCOUNTER 2023-12-02 15:18 | Outpatient (CLI) | payer BC, SELFPAY ==
--- NOTE | ~2023-12-02 | US_ITS ---
EXAMINATION: US soft tissue head and neck DATE: 12/02/2023 15:40 INDICATION: Cervical lymphadenopathy TECHNIQUE: Multiple grayscale and Doppler ultrasound images of the region of concern at the right sarkis e of the neck were obtained. COMPARISON: None FINDINGS: There is asymmetric mild enlargement and hyperemia of the right submandibular gland relative to the l eft submandibular gland consistent with likely sialoadenitis. There are few mildly prominent right ce rvical lymph nodes, the largest measuring 2.7 x 1.7 x 0.9 cm which remains within normal limits. No o ther abnormal masses or pathologically enlarged lymphadenopathy. IMPRESSION: 1. A few mildly prominent but still normal-sized right cervical lymph nodes which are likely reactive . 2. Asymmetric mild enlargement and hyperemia of the right submandibular gland relative to the left palacio spicious for sialadenitis. Reviewed, dictated and finalized at location A. RAL SUPPLY SUPERVISOR IMPRESSION: 1. A few mildly prominent but still normal-sized right cervical lymph nodes whi ch are likely reactive. 2. Asymmetric mild enlargement and hyperemia of the right submandibular gland r elative to the left suspicious for sialadenitis.
== END 2023-12-02 15:19 ==
LOC: MICIMG 15:20
PROVIDERS: PCP Family Medicine; Visit Provider Family Medicine
DX: R59.0 Localized enlarged lymph nodes (principal); R68.89 Other general symptoms and signs
CPT/HCPCS: 76536

== ENCOUNTER 2024-05-31 11:00 | Outpatient (CLI) | payer BC, SELFPAY ==
--- NOTE | ~2024-05-31 | MR_ITS ---
MRI of the left shoulder Technique: Axial proton-density fat-sat images, coronal proton density fat-sat and T2 fat-sat images, and sagittal T1-weighted and T2 fat-sat images were acquired. Clinical History: Pain Findings: There is mild AC joint degenerative change. Probable small subacromial spur. Coracoclavicul ar, coracoacromial, and coracohumeral units are intact. There is a focal high-grade partial or full-thickness tear at the posterior aspect of the supraspinat us tendon/anterior aspect of the infraspinatus tendon, measuring approximate 7 mm in extent. There is mild supraspinatus and infraspinatus tendinosis. Subscapularis tendon is intact. Tendon of long head of the biceps is intact. No labral tear identified. Inferior glenohumeral ligament is intact. No degenerative change or effusion of the glenohumeral join t. No fluid distention of the subacromial/subdeltoid bursa. No muscle atrophy or edema. Impression: 7 mm high-grade partial or focal full-thickness tear at the junction of the supraspinatus and infrasp inatus tendons, as noted above. Mild AC joint degenerative change. Reviewed, dictated and finalized at [facility]. Impression: 7 mm high-grade partial or focal full-thickness tear at the junction of the sup raspinatus and infraspinatus tendons, as noted above. Mild AC joint degenerative change.
== END 2024-05-31 11:01 ==
LOC: MICIMG 11:01
PROVIDERS: PCP Nurse Practitioner Family; Visit Provider Physician Assistant Surgical
DX: M75.102 Unspecified rotator cuff tear or rupture of left shoulder, not specified as traumatic (principal); M19.012 Primary osteoarthritis, left shoulder
CPT/HCPCS: 73221

== ENCOUNTER 2024-06-28 15:29 | Outpatient (CLI) | payer BC, SELFPAY ==
--- NOTE | ~2024-06-28 | MM_ITS ---
EXAMINATION: MM screening tri BI w osiel HISTORY: Screening TECHNIQUE: Craniocaudal and mediolateral oblique 3-D tomosynthesis images were obtained and synthetic 2-D images were generated. CAD analysis was submitted and interpreted. COMPARISON: Comparison to multiple prior studies sequentially, with oldest reviewed study dated 10/23. BREAST PARENCHYMAL COMPOSITION: Not Dense. The breasts are almost entirely fatty. FINDINGS: There is no evidence of suspicious mass, calcification, or architectural distortion to sugg est malignancy in either breast. There has been no suspicious interval change. IMPRESSION: 1. No mammographic evidence of malignancy. 2. Recommend routine screening mammography in one year. BI-RADS Category 1: Negative Reviewed, dictated and finalized at location [facility].
== END 2024-06-28 15:30 ==
LOC: MICIMG 15:30
PROVIDERS: PCP Nurse Practitioner Family; Visit Provider Nurse Practitioner Family
DX: Z12.31 Encounter for screening mammogram for malignant neoplasm of breast (principal)
CPT/HCPCS: 77063; 77067

== ENCOUNTER 2024-08-08 15:45 | Outpatient (RCR) | payer BC, SELFPAY ==
--- NOTE | 2024-07-13 16:27 | OPREHPOC ---
Outpatient Therapy Plan of Care This is a Multidisciplinary Plan of Care that may contain components documented by all disciplines (PT, OT, and ST.) PT Problem 1 PT Problem #1 Knowledge Deficit PT Goal 1 Goal / Goal Update *indep with HEP * correct posture of shoulder with exercise Target Visit 8 PT Problem 2 PT Problem #2 Pain PT Goal 1 Goal / Goal Update 1* pt report pain rating of 5/10 at worst 2* self assessment Quick DASH rating fo 40% limitation in activity level 3* pt report with sleeping, awaken 1x/night due to shoulder pain Target Visit 8 PT Problem 3 PT Problem #3 Impaired Flexibility PT Goal 1 Goal / Goal Update increase flexibility of L shoulder, to improve self care and home tasks: in standing, active: 1* IR - reach behind back, fingers to lower scapula 2* ER- reach to back of head, palm to back of head without pain increase Target Visit 8 PT Problem 4 PT Problem #4 Impaired Strength PT Goal 1 Goal / Goal Update 1* increase strength of L shoulder, able to perform 15 reps of strengthening in standing with 3# hand weight, to 90' of flexion and abduction Target Visit 8
--- NOTE | 2024-07-13 16:28 | PTOPEVAL1 ---
Assessment and note entered by Jia Echeverria, PT Evaluation Information Assessment Status Evaluation ICD-10 Condition Codes (PT) M25.512 Onset about a year Subjective Information gradual increae in shoulder pain over the past year; did not have an injury or trauma to shoulder. 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 MRI has changes as above. Quick DASH self assessment rating of 68% limitation in activity. She reports decreased use of her dominant arm for home and work tasks with sleep disrupted. With the evaluation, she has decreased L shoulder abduction, IR and ER motions, with pain increase with these motions; decreased strength of L shoulder. Skilled PT services are indicated for shoulder partial tear treatment: modalities for pain control, therapeutic exercises for strengthening in lower ROM and stretching to increase flexiblity with education for HEP,posture and pain control. Plan of Care Interventions Electrical Stimulation,Hot Pack/Cold Pack,Manual Therapy,Neuro Re-education,Therapeutic Activities, Therapeutic Exercise,Ultrasound,pt educationOther Other Interventions taping, [facility] PT Services Indicated
--- NOTE | 2024-08-13 10:39 | PCPTNOTE ---
Called and canceled , not feeling well. AKS
--- NOTE | 2024-08-13 16:05 | PTOPDC ---
Assessment and note entered by Jia Echeverria, PT Discharge Report Assessment Status Discharge - Pt Not Present ICD-10 Condition Codes (PT) M25.512 Onset about a year Subjective Information pt called and canceled PT, stated she was having too much pain. Assessment PT Clinical Summary Karime has received 5 PT sessions, from July 13 to August 05. She called and canceled all remaining appointments due to pain increase. Discharge PT per pt request. The goals were not addressed. Plan of Care PT Services Indicated No
== END 2024-08-14 09:27 | disposition home or self-care (01) ==
LOC: ANHPT 15:45
PROVIDERS: PCP Nurse Practitioner Family; Visit Provider Orthopaedic Surgery
DX: M25.512 Pain in left shoulder (principal)
CPT/HCPCS: 97014; 97110; 97112; 97140; 97161; 97530; G0283

== ENCOUNTER 2024-10-06 09:09 | Outpatient (CLI) | payer BC, SELFPAY ==
--- NOTE | 2024-10-06 09:13 | ECG_ITS ---
Test Date: 2024-10-06 09:22:15 Measurements Intervals Dickinson Rate: 84 P: -20 AR: 166 QRS: 51 QRSD: 89 T: 74 QT: 368 QTc: 435 Interpretive Statements SINUS OR ECTOPIC ATRIAL RHYTHM BORDERLINE T WAVE ABNORMALITY- HIGH LATERAL LEADS BASELINE ARTIFACT- III, AVF BORDERLINE ECG No previous ECG available for comparison Electronically Signed On 10-06-2024 16:45:35 CREDIT CARD CLERK by Quan Harrington D.O.
== END 2024-10-06 09:10 | disposition home or self-care (01) ==
LOC: ANHCARD 09:11
PROVIDERS: PCP Family Medicine; Visit Provider Anesthesiology
DX: E11.9 Type 2 diabetes mellitus without complications (principal); Z01.818 Encounter for other preprocedural examination; R94.31 Abnormal electrocardiogram [ECG] [EKG]
CPT/HCPCS: 93005

== ENCOUNTER 2024-10-08 16:50 | Outpatient (CLI) | payer BC, SELFPAY | END 2024-10-08 16:51 | disposition home or self-care (01) | LOC: ANHLAB 16:51 | PROVIDERS: PCP Family Medicine; Visit Provider Orthopaedic Surgery | DX: M75.100 Unspecified rotator cuff tear or rupture of unspecified shoulder, not specified as traumatic (principal) | CPT/HCPCS: 87081 ==

== ENCOUNTER 2024-10-11 01:10 | Day surgery (SDC) | payer BC, SELFPAY ==
[2024-10-05 09:24] VITALS: BMI 35.7
--- NOTE | 2024-10-05 09:31 | PC.NURSE ---
Report to the Outpatient Waiting Room, entrance under the green pavilion located off [facility], at time _0600_ on date _[id number]_. Planned Procedure Time: _0730_.? Continuous glucose monitor must not be on the arm we are doing surgery on. Time changes happen often and if your time is changed the preop area will call you the afternoon before. - You and your visitor will be asked to self-screen and do not enter if you have any COVID symptoms. Please call surgeon if you need to reschedule. - A mask is optional within the hospital at this time. Patients may have clear liquids (water, carbonated beverages, clear teas, apple juice) until 3 hours prior to surgery with a maximum of 20 ounces. - No food from midnight until time of surgery and no smoking. This includes no chewing gum, candy or mints. Take only the following medications with a SIP of water on the morning of surgery: __Flonase___ DO NOT STOP ANY OF YOUR OTHER PRESCRIPTION MEDICATIONS PRIOR TO SURGERY EXCEPT THE FOLLOWING Medications to discontinue per physician ___Vitamins_and supplements Date to take last ntnr___[id number]___Goasxpt is holding Ozempic and is stopping Naproxen today. Please no make-up, nail mongolian, hairspray, perfume, deodorant, or body powder the day of surgery.? No jewelry (including any body piercings) or valuables the day of surgery, leave them at home.? Please take a shower or bath the night before, or the morning of, surgery with an antibacterial soap.? Wear comfortable, loose fitting clothing.? - Jewelry must be removed prior to entering the operating room.? Rings and piercings that are not removed may be cut off. - The hospital will not accept responsibility for valuables.? - Please leave all valuables, including medications, at home the day of surgery. If you are going home after surgery, a licensed shag truck driver must drive you home.? - NO public transportation without another adult if you receive anesthesia. - We recommend that an adult stay with you for 24 hours following discharge. - We also recommend that you do not drive, make important decision, drink alcoholic beverages, or take any drugs that were not prescribed by your health care provider for at least 24 hours after your discharge time. Follow any additional instructions given to you from your surgeon. Telephone instructions given to __Brenda__and asked if any additional questions and then verbalized understanding. Patient advised to call surgeon office or pre surgery nurse liaison [phone] if any additional questions.
--- NOTE | 2024-10-10 11:57 | PM.IMHP ---
H&P: HPI History of Present Illness Date/Time: 10/10/24 11:57 Chief Complaint: High-grade partial-thickness tear left rotator cuff tendon. Narrative: 59-year-old female who presents today for arthroscopy of her left shoulder with mini open rotator cuff repair proceed as indicated. Patient has been having symptoms for approximately 1 year in the shoulder. He had an MRI scan done in May of this year which showed high-grade bursal sided partial-thickness tear involving the supraspinatus tendon. She has been on different anti-inflammatories without improvement of her symptoms. She did go through a course of physical therapy which unfortunately caused her worsening pain in the shoulder. At this point patient is having symptoms on a daily basis. She would like to proceed with surgery at this point rather than continue nonsurgical treatment. 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 Social History Social History Smoking packs per day: 0.4 Smoking cigarettes per day: 8.0 Years smoked: 20 Smoking pack-years: 8.00 Smoking status: Former smoker Tobacco type: cigarettes Second hand tobacco smoke exposure: No Smoking end date: 10/05/12 Alcohol intake: never Substance use: never Substance use type: does not use Do You Feel Safe in your Home?: Yes Lack of Transportation: No Lack of Food: Never True Current Housing: I Have Housing Concerned About Future Housing: No Difficulty Paying Gas/Electric Bills: No Difficulty Paying for Meds: No Currently Unemployed: No Education: Trade/Vocational Certificate Difficulty w/ Childcare or Family Care: No Living arrangements: with family Occupation/Education: occupation 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 patient): Female Spiritual care concerns: No Meds Home Medications and Allergies Home Medications Medication Instructions Recorded Confirmed Type losartan 100 1 tablet PO HS 08/09/20 10/05/24 History mg-hydrochlorothiazide 25 mg tablet metformin 500 mg tablet,extended 500 tablet PO HS 04/26/22 10/05/24 History release 24 hr venlafaxine 225 mg tablet,extended 225 mg PO HS 04/26/22 10/05/24 History release 24 hr cholecalciferol (vitamin D3) 1,250 1,250 mcg PO WEEKLY 05/16/24 10/05/24 History mcg (50,000 unit) capsule fezolinetant 45 mg tablet (Veozah) 45 mg PO DAILY 05/16/24 10/05/24 History cyclobenzaprine 10 mg tablet 10 mg PO TID PRN Spasms 08/07/24 10/05/24 History rosuvastatin 10 mg tablet 10 mg PO HS 08/07/24 10/05/24 History naproxen 500 mg tablet See Rx Instructions .Route 08/23/24 10/05/24 Rx .COMPLEX #60 tabs hydrocodone 7.5 mg-acetaminophen 1 tablet PO Q4H PRN pain #40 tabs 09/17/24 10/05/24 Rx 325 mg tablet blood-glucose sensor (FreeStyle #1 ea 10/01/24 10/05/24 Rx Willem 3 Plus Sensor device) fluticasone propionate 50 1 spray intranasal DAILY #16 grams 10/01/24 10/05/24 Rx mcg/actuation nasal spray,suspension (Flonase Allergy Relief) glipizide 10 mg tablet 20 mg PO DAILY 10/01/24 10/05/24 History semaglutide 0.25 mg or 0.5 mg (2 0.25 mg (0.368 mL) subcut WEEKLY 10/01/24 10/05/24 Rx mg/3 mL) subcutaneous pen injector #3 mL (Ozempic) zolpidem 10 mg tablet 10 mg PO QHS PRN insomnia #30 tabs 10/03/24 10/05/24 Rx Allergies Allergy/AdvReac Type Severity Reaction Status Date / Time Iodinated Contrast Media Allergy Unknown Itching Verified 10/05/24 09:19 latex Allergy Unknown Itching Verified 10/05/24 09:19 Exam Narrative: 59-year-old female she is 5 ft 2 and 191 lb BMI is 36. Left shoulder she has elevation 170 external rotation to 70 internal rotation to L1 all with moderate pain. She has [id number] weakness with abduction testing mild weakness with external rotation both associated with moderate pain. AC joint is nontender. Moderate pain with primary impingement testing. Moderate tenderness to the anterior superior spend a this tendon insertion. She has no numbness or tingling in the left arm. 2+ radial pulse. Resp: Auscultation: clear to auscultation bilaterally Cardio: Rate: regular rate Rhythm: regular rhythm Assessment and Plan Assessment and plan (1) Partial thickness tear of left rotator cuff: Code(s): M75.112 - Incomplete rotator cuff tear or rupture of left shoulder, not specified as traumatic Status: Acute Assessment and Plan: 59-year-old female who has a high-grade partial-thickness tear of the left rotator cuff tendon. She has failed nonsurgical treatment for this. She is having pain on a daily basis and wishes to proceed with surgery. Surgical procedures well as the risks and complications were discussed in detail and all questions were answered and we will proceed. Patient will see her primary care doctor for pre-surgical clearance she will also see a extrusion process operator for pre-surgical clearance. She will avoid any aspirin ibuprofen products 1 surgery. Patient's hemoglobin A1c was 7.5. Nasal swab was negative.
[2024-10-11] VITALS (10 sets, daily range): BP systolic 129–186; BP diastolic 67–74; PULSE 76–92; RESP 12–20; TEMP 36.8; O2SAT 94–100
[2024-10-11] MEDS: ACETAMINOPHEN 500 MG TABLET 1000 MG PO (06:32)
[2024-10-11] MEDS: KETOROLAC 15 MG/ML VIAL (*BKC) IV PUSH (06:44)
[2024-10-11 06:48] LABS: Glucose Point of Care 183 mg/dl (65-105)
[2024-10-11] MEDS: VANCOMYCIN 1,500 MG/NS 500 ML BAG 250 MG IVPB (06:50)
--- NOTE | 2024-10-11 07:17 | WPDHPUPDATE1 ---
History and Physical Update Update Date/Time: 10/11/24 07:17 History and Physical has been reviewed, including an updated exam of the patient. There are NO changes in the patient's condition. Risks, benefits, and alternatives have been discussed and questions answered. Patient agrees to proceed with procedure.
--- NOTE | 2024-10-11 07:23 | P.PNAN_ITS ---
Anes - Initial Pre Proc Eval Procedure: Operation Date: 10/11/24 07:30 Proposed Procedures p Left Shoulder Arthroscopy, Mini Open Rotator Cuff Repair, Proceed as Indicated - Frandy Koehler MD Date/Time: 10/11/24 07:23 Surgeon: Frandy Koehler MD Pre Op Diagnosis: Rot Cuff Tear Left Shoulder Patient Data Age: 59 Gender: F Height: 1.57 m Weight: 89.2 kg Last Vital Signs Temp 36.8 C 10/11/24 06:04 Pulse 82 10/11/24 06:04 Resp 18 10/11/24 06:04 BP 129/72 10/11/24 06:04 Pulse Ox 99 10/11/24 06:04 O2 Del Method Room Air 10/11/24 06:04 Allergies Allergy/AdvReac Type Severity Reaction Status Date / Time Iodinated Contrast Media Allergy Unknown Itching Verified 10/11/24 06:10 latex Allergy Unknown Itching Verified 10/11/24 06:10 Home Medications Medication Instructions Recorded Confirmed Type losartan 100 1 tablet PO HS 08/09/20 10/11/24 History mg-hydrochlorothiazide 25 mg tablet metformin 500 mg tablet,extended 500 tablet PO HS 04/26/22 10/11/24 History release 24 hr venlafaxine 225 mg tablet,extended 225 mg PO HS 04/26/22 10/11/24 History release 24 hr cholecalciferol (vitamin D3) 1,250 1,250 mcg PO WEEKLY 05/16/24 10/11/24 History mcg (50,000 unit) capsule fezolinetant 45 mg tablet (Veozah) 45 mg PO DAILY 05/16/24 10/11/24 History cyclobenzaprine 10 mg tablet 10 mg PO TID PRN Spasms 08/07/24 10/11/24 History rosuvastatin 10 mg tablet 10 mg PO HS 08/07/24 10/11/24 History naproxen 500 mg tablet See Rx Instructions .Route 08/23/24 10/11/24 Rx .COMPLEX #60 tabs hydrocodone 7.5 mg-acetaminophen 1 tablet PO Q4H PRN pain #40 tabs 09/17/24 10/11/24 Rx 325 mg tablet blood-glucose sensor (FreeStyle #1 ea 10/01/24 10/05/24 Rx Willem 3 Plus Sensor device) fluticasone propionate 50 1 spray intranasal DAILY #16 grams 10/01/24 10/11/24 Rx mcg/actuation nasal spray,suspension (Flonase Allergy Relief) glipizide 10 mg tablet 20 mg PO DAILY 10/01/24 10/11/24 History semaglutide 0.25 mg or 0.5 mg (2 0.25 mg (0.368 mL) subcut WEEKLY 10/01/24 10/11/24 Rx mg/3 mL) subcutaneous pen injector #3 mL (Ozempic) zolpidem 10 mg tablet 10 mg PO QHS PRN insomnia #30 tabs 10/03/24 10/11/24 Rx Laboratory Tests 10/11/24 06:43 POC Capillary Glucose 183 H mg/dl (65-105) Patient hx anesthesia problems: none Family hx anesthesia problems: none Results Review: All pre-operative results and documents have been reviewed as part of the pre- operative evaluation. 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 Social History Social History Smoking packs per day: 0.4 Smoking cigarettes per day: 8.0 Years smoked: 20 Smoking pack-years: 8.00 Smoking status: Former smoker Tobacco type: cigarettes Second hand tobacco smoke exposure: No Smoking end date: 10/05/12 Alcohol intake: never Substance use: never Substance use type: does not use Do You Feel Safe in your Home?: Yes Lack of Transportation: No Lack of Food: Never True Current Housing: I Have Housing Concerned About Future Housing: No Difficulty Paying Gas/Electric Bills: No Difficulty Paying for Meds: No Currently Unemployed: No Education: Trade/Vocational Certificate Difficulty w/ Childcare or Family Care: No Living arrangements: with family Occupation/Education: occupation 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 Informed Consent: The patient's anesthetic plan and its attendant risks and benefits were discussed with the patient/family/POA. Questions were solicited and answers provided to the satisfaction of the patient/family/POA.
[2024-10-11] MEDS: ceFAZolin 2 GM/D5W 50 ML 2 GM/50 ML BAG IVPB (07:33)
[2024-10-11] MEDS: ceFAZolin SODIUM 1 GM VIAL (08:14)
[2024-10-11] MEDS: LACTATED RINGERS 1,000 ML 30 ML IV CONT (10:03)
[2024-10-11 10:13] LABS: Glucose Point of Care 216 mg/dl (65-105)
--- NOTE | 2024-10-11 10:15 | PM.OP ---
Procedure Note - Brief Procedure Note - Brief Date of procedure: 10/11/24 Rot Cuff Tear Left Shoulder Procedure performed: Left shoulder arthroscopy with mini open rotator cuff repair Surgeon: AARON De Leon Findings: 59-year-old female underwent left shoulder arthroscopy with mini open repair cuff repair on 10/11. I was involved in the procedure including positioning the patient on the OR table in 1st assisting through the time surgery. Total time spent was 2-1/2 hours
[2024-10-11] MEDS: fentaNYL CITRATE INJ (*CRX) 100 MCG/2 ML VIAL 25 MCG IV PUSH ×2 (10:16→10:43)
--- NOTE | 2024-10-11 10:21 | P.OP_ITS ---
Procedure Note - Detailed Date of Procedure 10/11/24 Pre-op Diagnosis Rot Cuff Tear Left Shoulder Post-op Diagnosis Same Procedure Performed Arthroscopic subacromial decompression left shoulder, mini open excision of pre acromial os acromiale fragment, rotator cuff repair left shoulder Surgeon Frandy Koehler MD [employer] Tevin Anesthesia General Description of Procedure patient was brought to the operating room and general anesthesia was administered. She was placed in the beach chair position head secured in neutral alignment in the left shoulder prepped draped usual fashion. all the skin except the top portion the shoulder was covered with Ioban. She received 2 g of Ancef weight based vancomycin preoperatively. The shoulder joint was injected with 10 cc of normal saline and a posterior portal was placed. The intra-articular examination was very normal. There was minimal maceration of the anterior superior labrum which was gently trimmed to the bone right shaver. Articular surfaces of the glenoid and humeral head were normal. The long head of the biceps was retracted into the joint and showed no fraying or erythema. The subscapularis tendon looked normal to the insertion. Inferior shoulder joint also looked normal. There was no evidence of full-thickness rotator cuff as the capsule remained intact under the supraspinatus and infraspinatus although there was laxity. The arthroscope was placed in the subacromial space. There is a fair amount of redundant bursal tissue and we made a mid lateral portal and placed the anterior portal in the subacromial space her outflow and using alternating shaver and arthroscopic cautery removal of hypertrophic bursal tissue was performed hemostasis was achieved. The rotator cuff tear was readily evident from the bursal surface. It appeared to be about 2 cm in length and retracted medial little bit but the inferior capsular layer was still it intact. There was fraying of the anterolateral coracoacromial ligament. Using the arthroscopic cautery the coracoacromial ligament was released from the anterior-inferior acromial surface and this revealed a loose pre acromial os acromiale fragment.I felt this would be safer to remove through the mini open approach. The remaining uncovered skin was covered with IO band and outer gloves changed. A 1/2 inch longitudinal incision was made from the anterior edge of the superior surface of the acromion extending inferiorly anterolaterally. This was over the tenderness Amadou a between the anterior middle heads of the deltoid which was incised for deltoid split the 3.5 cm. The pre acromial os acromiale fragment was readily identified under the anterior deltoid origin and this was carefully removed with needle-nose rongeur and a piecemeal fashion which was accomplished with minimal release of the anterior deltoid from the acromion. The the remaining anterior acromial undersurface was smoothed with a Richard rasp until it was palpably smooth and appropriate space was achieved. The self-retaining retractor was placed. The tear was about 2 cm perhaps 22 mm in width. There was no fraying the tendon tissue. Healthy. It was retracted about 7 or 8 mm but tethered by the intact capsular layer. A clean 15 blade scalpel was used to scrape the remaining soft tissue off the exposed greater tuberosity footprint. There was a little bit articular side partial-thickness tearing under the posterior aspects of the infraspinatus that remained attached. A 2 mm bur was used to make her holes adjacent to the articular surface or patch of suture and shallow 1 mm dimples were made in the greater tuberosity footprint for improved healing surface area. This gave a nice bleeding tuberosity. Bursal adhesions were released with the there elevator over the supraspinatus and infraspinatus muscle bellies and this gave ample mobility to hold the latera l edge of the tendon passed its insertion site. We then placed 3 1.2 mm [place] suture tapes and a simple fashion through the werner holes adjacent to the articular surface orienting these sutures to give a convergent severe co repair. These were then tied. Within flat passed 3 more sutures in the gaps for total of 6 sutures for the repair and this gave us a smooth spherical repair surface. Range of motion was full without any tension on the repair. The wound was again irrigated with Ancef solution. The arthroscope was placed back into the shoulder from the posterior portal to confirm that the long head of the biceps remained free to slide into the joint which he was. The anterior deltoid was repaired thoroughly with 2. Vicryl through the anterior acromion the split with 1. Vicryl skin closed with 2 subcu Vicryl and glue. EBL was 10 cc. There were no complications he was transferred to postop recovery room in stable condition With the shoulder immobilizer device applied.
--- NOTE | 2024-10-11 10:32 | SUR.PHASEI ---
1015 - [facility] juarez [id number]
--- NOTE | 2024-10-11 10:32 | SUR.PHASEI ---
1026 - dr. juarez at bedside administering block
[2024-10-11] MEDS: ceFAZolin SODIUM 1 GM VIAL IV PUSH (11:06)
--- NOTE | 2024-10-11 11:33 | WPDANESPNB ---
Anes - Peripheral Nerve Block Date/Time: 10/11/24 11:33 I have discussed with the patient/family/POA the placement of a peripheral nerve block for post-operative pain management, including associated risks, benefits, complications, and side effects. Alternative methods of post-operative analgesia were detailed. Questions were solicited and answers provided to the satisfaction of the patient/family/POA. Time-Out: A pre-procedural Time-Out was completed immediately before starting the procedure and confirmed: Patient Identification, Site, Procedure, Patient Position and the Availability of Requisite Equipment. Clinical Indications: Acute post-operative pain management requested by the operative surgeon. Nerve Block Insertion Note Anes-nerve block: interscalene left Patient position: other (sitting) Skin prep: chlorhexidine Needle: 22 gauge, stimulating, insulated echogenic needle. Needle length: 50 mm Technique: nerve stimulation lost at (mA) (0.3) and ultrasound Technique comment: done in PACU Injectate: bupivacaine 0.5% with epi 5 mcg/ml (30ml no epi) Observations: tolerated well Complications: none Procedure start time:: 1009 Procedure end time:: 1016
[2024-10-11] MEDS: oxyCODONE HCL (*CRX) 5 MG TAB IR PO (11:37)
== END 2024-10-11 12:24 | disposition home or self-care (01) ==
PROVIDERS: PCP Family Medicine; Visit Provider Orthopaedic Surgery
PROC: (CPT 29805; principal; 2024-10-11 07:30)
DX: M75.112 Incomplete rotator cuff tear or rupture of left shoulder, not specified as traumatic (principal); G89.18 Other acute postprocedural pain; E11.9 Type 2 diabetes mellitus without complications; I10 Essential (primary) hypertension; F41.9 Anxiety disorder, unspecified; F32.A Depression, unspecified; Z85.819 Personal history of malignant neoplasm of unspecified site of lip, oral cavity, and pharynx; Z79.84 Long term (current) use of oral hypoglycemic drugs; Z79.85 Long-term (current) use of injectable non-insulin antidiabetic drugs; Z87.891 Personal history of nicotine dependence; E66.9 Obesity, unspecified; Z68.36 Body mass index [BMI] 36.0-36.9, adult
CPT/HCPCS: 23412; 29822; 64415; 82948; A4565; A9270; J0690; J1100; J1596; J1885; J2250; J2270; J2405; J2704; J2710; J3010; J3370; J7120

== ENCOUNTER 2024-10-11 15:43 | Emergency (ER) | payer BC, SELFPAY ==
--- NOTE | 2024-10-11 15:45 | PC.NURSE ---
pt decided to go to [facility] d/t possible wait time
== END 2024-10-11 15:54 | disposition left against medical advice (07) ==
LOC: ANHED 15:51
PROVIDERS: PCP Family Medicine
DX: Z53.21 Procedure and treatment not carried out due to patient leaving prior to being seen by health care provider (principal)
CPT/HCPCS: 99199

== ENCOUNTER 2025-01-08 15:45 | Outpatient (RCR) | payer BC, SELFPAY ==
--- NOTE | 2024-10-17 09:57 | OPREHPOC ---
Outpatient Therapy Plan of Care This is a Multidisciplinary Plan of Care that may contain components documented by all disciplines (PT, OT, and ST.) PT Problem 1 PT Problem #1 Knowledge Deficit PT Goal 1 Goal / Goal Update [place] with HEP Target Visit 4 PT Goal 2 Goal / Goal Update Patient will report 75% improvement in quality and quantity of sleep Target Visit 8 PT Problem 2 PT Problem #2 Pain PT Goal 1 Goal / Goal Update Report consistently no pain greater than 2/10 for 2 consecutive weeks Target Visit 8 PT Goal 1 Goal / Goal Update 1. Achieve 170+ degrees of left shoulder flexion passive ROM 2. Achieve 80+ degrees left shoulder external passive ROM Target Visit 10 PT Problem 4 PT Problem #4 Impaired Strength PT Goal 1 Goal / Goal Update 1. Improve left shoulder external rotation strength to 4/5 to improve shoulder stability for self care activity 2. Improve left shoulder flexion strength to 4/5 to improve active reaching and object lifting ability Target Visit 10
--- NOTE | 2024-10-17 09:57 | PTOPEVAL1 ---
Assessment and note entered by Carlos Rai, PT Evaluation Information Diagnosis M75.112 Rotator cuff tear ICD-10 Condition Codes (PT) M25.512 Onset 10/11/24 Subjective Information Reports that she is having pain at rest at this time. Pain is all ion the front part of the shoulder. She was having trouble for about a year prior to surgery. She is left handed. Having trouble sleeping. She has been taking pain medication around the clock for pain. Reported Pain Level Pain Score 4: Self Report Assessment PT Clinical Summary Patient presents with signs and symptoms typical of large rotator cuff repair. Patient has some pain limitation but was not elicited with elbow and wrist motion today. Patient will be following up with MD next week to establish plan for progression of ROM over the course of the next few weeks. Patient appears compliant with use of sling and has no concerns with protocol at this time. Plan of Care Interventions Hot Pack/Cold Pack,Manual Therapy,Neuro Re- education,Therapeutic Activities,Therapeutic Exercise PT Services Indicated Yes Treatment Frequency and 1x/week until ROM protocol begins transitioning to Duration 2x/week These treatments will address the objective and functional deficits as defined above. The patient will be advanced safely and appropriately in order for the patient to progress towards his/her prior level of function. Additional exercises will be introduced and as well as a comprehensive home exercise program upon discharge, if needed, ?to ensure carryover of functional gains achieved in the clinic. This treatment plan has been reviewed and agreement upon by the patient.
--- NOTE | 2024-12-04 14:20 | OPREHPOC ---
Outpatient Therapy Plan of Care This is a Multidisciplinary Plan of Care that may contain components documented by all disciplines (PT, OT, and ST.) PT Problem 1 PT Problem #1 Knowledge Deficit PT Goal 1 Goal / Goal Update [place] with HEP Target Visit 4 Progress Met PT Goal 2 Goal / Goal Update Patient will report 75% improvement in quality and quantity of sleep Target Visit 8 Progress Met PT Problem 2 PT Problem #2 Pain PT Goal 1 Goal / Goal Update Report consistently no pain greater than 2/10 for 2 consecutive weeks Target Visit 16 Progress Partially Met PT Goal 1 Goal / Goal Update 1. Achieve 170+ degrees of left shoulder flexion passive ROM 2. Achieve 80+ degrees left shoulder external passive ROM Target Visit 10 Progress Partially Met PT Problem 4 PT Problem #4 Impaired Strength PT Goal 1 Goal / Goal Update 1. Improve left shoulder external rotation strength to 4/5 to improve shoulder stability for self care activity 2. Improve left shoulder flexion strength to 4/5 to improve active reaching and object lifting ability Target Visit 10 Progress Partially Met
--- NOTE | 2024-12-04 14:20 | PTOPPROG ---
Assessment and note entered by Carlos Rai, PT Evaluation Information Assessment Status Progress Diagnosis M75.112 Rotator cuff tear ICD-10 Condition Codes (PT) Pain in left shoulder M25.512 Onset 10/11/24 Subjective Information Reports that the shoulder is a bit painful today but she has likely been ding more than she shoulder. Pain is all in lateral shoulder and biceps. Overall feels she is making progress but still sore frequently. Assessment PT Clinical Summary Patient has made excellent progress in shoulder ROM. We are now initiating full arc of motion and strength and no concerns at this time moving forward, Will continue to benefit form skilled therapy to progress per protocol. Plan of Care Interventions Hot Pack/Cold Pack,Manual Therapy,Neuro Re- education,Therapeutic Activities,Therapeutic Exercise PT Services Indicated Yes Treatment Frequency and 1-2x/week for 8 visits Duration These treatments will address the objective and functional deficits as defined above. The patient will be advanced safely and appropriately in order for the patient to progress towards his/her prior level of function. Additional exercises will be introduced and as well as a comprehensive home exercise program upon discharge, if needed, ?to ensure carryover of functional gains achieved in the clinic. This treatment plan has been reviewed and agreement upon by the patient.
--- NOTE | 2024-12-25 11:45 | PCPTNOTE ---
Pt cancelled stating she can't make it
--- NOTE | 2024-12-31 12:02 | OPREHPOC ---
Outpatient Therapy Plan of Care This is a Multidisciplinary Plan of Care that may contain components documented by all disciplines (PT, OT, and ST.) PT Problem 1 PT Problem #1 Knowledge Deficit PT Goal 1 Goal / Goal Update [place] with HEP Target Visit 4 Progress Met PT Goal 2 Goal / Goal Update Patient will report 75% improvement in quality and quantity of sleep Target Visit 8 Progress Met PT Problem 2 PT Problem #2 Pain PT Goal 1 Goal / Goal Update Report consistently no pain greater than 2/10 for 2 consecutive weeks Target Visit 24 Progress Partially Met PT Goal 1 Goal / Goal Update 1. Achieve 170+ degrees of left shoulder flexion passive ROM 2. Achieve 80+ degrees left shoulder external passive ROM Target Visit 24 Progress Partially Met PT Problem 4 PT Problem #4 Impaired Strength PT Goal 1 Goal / Goal Update 1. Improve left shoulder external rotation strength to 4/5 to improve shoulder stability for self care activity 2. Improve left shoulder flexion strength to 4/5 to improve active reaching and object lifting ability Target Visit 24 Progress Partially Met
--- NOTE | 2024-12-31 12:03 | PTOPPROG ---
Assessment and note entered by Carlos Rai, PT Evaluation Information Assessment Status Progress Diagnosis M75.112 Rotator cuff tear ICD-10 Condition Codes (PT) Pain in left shoulder M25.512 Onset 10/11/24 Subjective Information Patient reports improved mobility. Had a small pain setback a couple of weeks ago, but seems to be improving. Still struggling with strength and reaching behind her back. Assessment PT Clinical Summary Patient making excellent progress at this time with both ROM and strength. We have seen progress in all function but still has notable functional deficits to address in strength and self care ROM. Will continue to benefit form skilled therapy to address these deficits. Plan of Care Interventions Hot Pack/Cold Pack,Manual Therapy,Neuro Re- education,Therapeutic Activities,Therapeutic Exercise PT Services Indicated Yes Treatment Frequency and 2x/week for 8 visits Duration These treatments will address the objective and functional deficits as defined above. The patient will be advanced safely and appropriately in order for the patient to progress towards his/her prior level of function. Additional exercises will be introduced and as well as a comprehensive home exercise program upon discharge, if needed, ?to ensure carryover of functional gains achieved in the clinic. This treatment plan has been reviewed and agreement upon by the patient.
== END 2025-01-15 23:59 | disposition home or self-care (01) ==
LOC: ANHPT 15:45
PROVIDERS: PCP Family Medicine; Visit Provider Orthopaedic Surgery
DX: M75.112 Incomplete rotator cuff tear or rupture of left shoulder, not specified as traumatic (principal)
CPT/HCPCS: 97014; 97035; 97110; 97140; 97161; 97530; G0283

== ENCOUNTER 2025-01-17 09:54 | Outpatient (RCR) | payer BC, SELFPAY ==
--- NOTE | 2025-01-24 07:35 | PTOPDC ---
Assessment and note entered by Carlos Rai, PT Evaluation Information Assessment Status Discharge - Pt Not Present Diagnosis M75.112 Rotator cuff tear ICD-10 Condition Codes (PT) Pain in left shoulder M25.512 Onset 10/11/24 Subjective Information Patient contacted clinic stating that she followed up with MD and was released from both care and therapy. Would like to discharge treatments at this time. Assessment PT Clinical Summary Patient to be discharged from skilled therapy at this time. Please refer to last progress note for discharge status. Plan of Care PT Services Indicated Yes
== END 2025-04-17 23:59 | disposition home or self-care (01) ==
LOC: ANHPT 09:54
PROVIDERS: PCP Family Medicine; Visit Provider Orthopaedic Surgery
DX: M75.112 Incomplete rotator cuff tear or rupture of left shoulder, not specified as traumatic (principal)
CPT/HCPCS: 97110; 97140

== ENCOUNTER 2025-07-05 07:29 | Outpatient (CLI) | payer BC, SELFPAY ==
--- NOTE | ~2025-07-05 | MM_ITS ---
EXAMINATION: MM screening tri BI w osiel HISTORY: Screening TECHNIQUE: Craniocaudal and mediolateral oblique 3-D tomosynthesis images were obtained and synthetic 2-D images were generated. CAD analysis was submitted and interpreted. COMPARISON: Comparison to multiple prior studies sequentially, with oldest reviewed study dated 10/23. BREAST PARENCHYMAL COMPOSITION: Not Dense: The breasts are almost entirely fatty. FINDINGS: There is no evidence of suspicious mass, calcification, or architectural distortion to sugg est malignancy in either breast. There has been no suspicious interval change. IMPRESSION: 1. No mammographic evidence of malignancy. 2. Recommend routine screening mammography in one year. BI-RADS Category 1: Negative Reviewed, dictated and finalized at location A.
== END 2025-07-05 07:30 | disposition home or self-care (01) ==
PROVIDERS: PCP Family Medicine; Visit Provider Family Medicine
DX: Z13.21 Encounter for screening for nutritional disorder (principal)
CPT/HCPCS: 77063; 77067

== ENCOUNTER 2025-11-10 09:17 | Outpatient (CLI) | payer BC, SELFPAY ==
--- NOTE | ~2025-11-10 | CT_ITS ---
EXAMINATION:CT chest high resolution w con DATE: 11/10/2025 09:47 INDICATION: Solitary pulmonary nodule. TECHNIQUE: Computed tomography (CT) of the chest was performed with 75 mL Omnipaque 350 intravenous contrast. Automated exposure control and iterative reconstruction technique were employed. The dose-length product (DLP) was 235.85 mGy-cm. COMPARISON: None. FINDINGS: The lungs demonstrate mild atelectasis. There is a 4 mm nodule in right lower lobe, likely benign. No pleural effusion. The heart size is normal. No pericardial effusion. There is severe cervical spondylosis and moderate thoracic spondylosis. IMPRESSION: 1. 4 mm nodule in right lung lower lobe, likely benign. Reviewed, dictated and finalized at location E. A SENIOR RECRUITER
--- OUTSIDE RECORDS SUMMARY | 2025-11-10 09:21 | XMS_ITS | Clinical Summary ---
Author Organization [facility] Address [address] [place] [address] Care Team Providers Care Trading Manager Name Role Phone Layo Zavala DO Primary Care Provider Allergies Active Allergy Reactions Criticality Noted Date Comments Iodinated Contrast Media Hives,Itching,Anaphylaxis High Reaction: Iodine Rash,Swelling,Hives Medium 05/18/2022 Latex Itching,Redness,Unknown Low 08/17/2022 Reaction: Medications zolpidem (AMBIEN) 10 mg tabletIndicatio ns:Sleep-Onset Insomnia,takes lunesta or ambien at hs-one or the other Take 1 tablet (10 mg total) by mouth nightly as needed for sleep 2 8 Active losartan-hydroC HLOROthiazide (HYZAAR) 100-12.5 mg per tabletIndicatio ns:hypertension Take 1 tablet by mouth nightly Active cetirizine (ZyrTEC) 10 mg tablet Take 1 tablet (10 mg total) by mouth as needed for allergies Active albuterol 2.5 mg /3 mL (0.083 %) nebulizer solutionIndicat ions:Acute Asthma Attack Take 3 mL (2.5 mg total) by nebulization every 6 (six) hours as needed for shortness of breath Active fluticasone propionate (FLONASE) 50 mcg/actuation nasal spray Administer 1 spray into each nostril as needed for allergies Active LORazepam (ATIVAN) 1 mg tablet Take 1 tablet (1 mg total) by mouth as needed for anxiety Active metFORMIN XR (GLUCOPHAGE XR) 500 mg 24 hr tabletIndicatio ns:type 2 diabetes mellitus Take 1 tablet (500 mg total) by mouth nightly With dinner Active rosuvastatin (CRESTOR) 10 mg tabletIndicatio ns:hyperlipidem ia Take 1 tablet (10 mg total) by mouth nightly 2 Active [id number]- khtf-ldc-ebhhv 2.5 mg-50 mg-18 iron/15 mL liquidIndicatio ns:For supplement Take 1 Dose by mouth daily Active cyclobenzaprine (FLEXERIL) 10 mg tablet Take 1 tablet (10 mg total) by mouth 3 (three) times a day as needed for muscle spasms 30 tablet 2 Active venlafaxine 225 mg tablet extended release 24hr 24 hr tabletIndicatio ns:Anxiety with Depression Take 1 tablet (225 mg total) by mouth nightly 3 Active FreeStyle Willem 3 Sensor device Rotates site 4 Active glipiZIDE (GLUCOTROL) 10 mg tabletIndicatio ns:type 2 diabetes mellitus Take 1 tablet (10 mg total) by mouth 2 (two) times a day before breakfast and lunch Active fezolinetant (Veozah) tablet tablet 1 tablet (45 mg total) daily Active ergocalciferol, vitamin D2, (VITAMIN D2 ORAL) Take by mouth 1.25 mg Active tirzepatide (Mounjaro) 2.5 mg/0.5 mL pen injector Inject 0.5 mL (2.5 mg total) under the skin every 7 days Active methylPREDNISol one (MEDROL DOSEPACK) 4 mg Dosepack Take as directed on package 1 packet 5 Active Active Problems Problem Noted Date Diagnosed Date Degenerative disc disease, cervical 01/17/2024 Spinal stenosis of cervical region 01/17/2024 Submandibular sialoadenitis 01/17/2024 Abdominal pain 11/30/2022 Adjustment disorder 11/30/2022 Chronic sinusitis 11/30/2022 Constipation 11/30/2022 Cramps of lower extremity 11/30/2022 Dysuria 11/30/2022 Insomnia 11/30/2022 Low back pain 11/30/2022 Pain in throat 11/30/2022 Shoulder pain 11/30/2022 Supraventricular tachycardia 09/22/2022 Macromastia 07/27/2022 Overview (11/30/2022): Added automatically from request for surgery [id number] Dizziness 05/18/2022 Fatigue 05/18/2022 Mantoux: positive 05/18/2022 Hyposmia 08/11/2021 Anosmia 07/08/2021 Hyperlipidemia 07/02/2020 Anemia 05/15/2018 Shortness of breath 10/18/2016 Gastroesophageal reflux disease 08/11/2016 Overview (11/30/2022): Added automatically from request for surgery [id number] Obesity 08/11/2016 Abnormal electrocardiogram 08/11/2016 Chronic depression 08/11/2016 Diabetes mellitus 08/11/2016 Sleep apnea, unspecified 08/11/2016 Personal history of nicotine dependence 08/11/20 16 Primary hypertension 08/11/2016 Vitamin D deficiency 08/11/2016 Dysphonia 10/08/2015 History of malignant neoplasm of larynx 10/08/20 15 Laryngopharyngeal reflux 04/25/2013 Resolved Problems Problem Noted Date Diagnosed Date Resolved Date Malignant tumor of larynx 05/18/2022 Surgical History Surgery Date Site/Laterality Comments HYSTERECTOMY 11/21/2011 - 11/20/2012 SECTION 11/21/1998 - 11/20/19992002 APPENDECTOMY 11/21/1982 - 11/20/1983 ABLATION 11/21/2021 - 11/20/2022 cardiac ESOPHAGUS SURGERY 11/21/2011 - 11/20/2012 REDUCTION MAMMAPLASTY 11/16/2022 LAPAROSCOPIC PRICE FUNDOPLICATION 04/23/2019 Medical History Medical History Date Comments Hypertension GERD (gastroesophageal reflux disease) Asthma Sleep apnea Throat cancer (HCC) HL (hearing loss) Abnormal ECG Anemia Diabetes mellitus History of transfusion 2006 Family History Medical History Relation Name Comments Diabetes Brother Kevin Vale Hypertension Brother Kevin Vale Diabetes Sister Iris Ryan Hypertension Sister Iris Ryan Migraines Sister Iris Ryan Anesthesia problems Neg Hx Relation Name Status Comments Brother Kevin Vael Sister Iris Ryan Social History Tobacco Use Types Packs/Day Years Used Date Smoking Tobacco: Former Cigarettes 0.5 23 1 989 - 2012 Smokeless Tobacco: Never Tobacco Cessation:Counseling Given: Not Answered Alcohol Use Standard Drinks/Week Comments Yes 0 (1 standard drink = 0.6 oz pur e alcohol) couple of times a year AUDIT-C Answer Date Recorded Q1: How often do you have a drink containing alcohol? Never 03/09/2024 Q2: How many drinks containi ng alcohol do you have on a typical day when you are drinking? Patient does not drink Q3: How often do you have si x or more drinks on one occasion? Never 03/09/2024 Personal Safety Answer Date Recorded Have you ever been in or are you currently in a harmful physical or emotional relationship or is someone making you feel afraid or unsafe? Denies 10/11/2024 Comments No Sex and Gender Information Value Date Recorded Sex Assigned at Not on file Legal Sex Female 1:11 PM CREDIT RATING CHECKER Gender Identity Female 12/13/2023 4:36 PM CREDIT RATING CHECKER Sexual Orientation Not on file Last Filed Vital Signs Vital Sign Reading Time Taken Comments Blood Pressure 181/86 10/11/2024 6:15 PM CREDIT RATING CHECKER Pulse 91 10/11/2024 6:16 PM CREDIT RATING CHECKER Temperature 36.7 C (98 F) 10/11/2024 4:52 PM CREDIT RATING CHECKER Respiratory Rate 16 10/11/2024 6:16 PM CREDIT RATING CHECKER Oxygen Saturation 97% 10/11/2024 6:16 PM CREDIT RATING CHECKER Inhaled Oxygen Concentration - - Weight 89.4 kg (197 lb) 10/11/2024 4:52 PM CREDIT RATING CHECKER Height 157.5 cm (5' 2) 10/11/2024 4:52 PM CREDIT RATING CHECKER Body Mass Index 36.03 10/11/2024 4:52 PM CREDIT RATING CHECKER Plan of Treatment Health Maintenance Due Date Last Done Comments Albumin Creatinine Ratio, Urine 1967 Colon Cancer Screening-Colonoscopy 1967 Depression Screening 1967 Hemoglobin A1C 1967 Hepatitis C Screening 1967 Dilated Eye Exam 1967 Foot Exam 1967 DTaP/Tdap/Td Vaccine (1 - Tdap) 1978 Hepatitis B Screening 1985 Regular Well Visit/Exam 18-64 1985 Pneumococcal vaccine <65 (1 of 2 - PCV) 1986 Zoster Vaccine (1 of 2) 2017 Lipid Panel 05/18/2023 05/18/2022 Breast Cancer Screening-Mammogram 09/30/2023 09/30/2022, 05/28/2021, 05/27/2021, Additional history exists Influenza Vaccine (#1) 2025 08/21/2017 eGFR 10/11/2025 10/11/2024, 03/26/2024 Procedures Procedure Name Priority Date/Time Associated Diagnosis Comments EGFR STAT 10/11/2024 5:51 PM CREDIT RATING CHECKER from Last 3 Months or Most Recently Relevant to Health Maintenance Results * eGFR (10/11/2024 5:51 PM CREDIT RATING CHECKER) eGFR >90 >=60 mL/min/1. 73 m2 Comment: Interpretive Data Reference Interval Normal >/= 90 mL/min/1.73m2 Mildly decreased* 60 - 89 mL/min/1.73m2 Mildly to moderately decreased 45 - 59 mL/min/1.73m2 Moderately to severely decreased 30 - 44 mL/min/1.73m2 Severely decreased 15 - 29 mL/min/1.73m2 Kidney Failure < 15 mL/min/1.73m2 *Relative to young adult level Estimated glomerular filtration rate is determined by the 2020 CKD-EPI equation recommended by the National Kidney Foundation (A Unifying Approach to GFR Estimation: Recommendations of the NKF-ASK Task Force on Reassessing the Inclusion of Race in Diagnosing Kidney Disease, JASN 2020). The CKD-EPI equation should not be used for patients with unstable renal function and has not been validated in children and those over 70. Current interpretive data was last reviewed 2021. Blood 10/11/2024 5:51 PM CREDIT RATING CHECKER 10/11/2024 6:08 PM CREDIT RATING CHECKER Byron Ibarra MD LAB BLOOD ORDERABLES Fin al Result [facility] [place] [address] from Last 3 Months or Most Recently Relevant to Health Maintenance Insurance [facility] Advance Directives For more information, please contact: [phone] * Full Code (Latest Code Status on File) Date Activated Date Inactivated Comments 04/23/2019 3:03 PM 04/24/2019 4:40 PM Care Teams Trading Manager Relationship Specialty Start Date End Date Layo Zavala DO [address] [place] [address] PCP - General Family Medicine 10/11/24
--- OUTSIDE RECORDS SUMMARY | 2025-11-10 09:21 | XMS_ITS ---
Author Organization [facility] Address [address] [place] [address] Care Team Providers Care Inclusion Specialist Name Role Phone Layo Zavala DO Primary Care Provider Active Problems Problem Noted Date Diagnosed Date [...] (11/30/2022): Added automatically from request for surgery [id number] Dizziness 05/18/2022 Fatigue 05/18/2022 Mantoux: positive 05/18/2022 Hyposmia 08/11/2021 Anosmia 07/08/2021 Hyperlipidemia 07/02/2020 Anemia 05/15/2018 Shortness of breath 10/18/2016 Gastroesophageal reflux disease 08/11/2016 Overview (11/30/2022): Added automatically from request for surgery [id number] Obesity 08/11/2016 Abnormal electrocardiogram 08/11/2016 Chronic depression 08/11/2016 Diabetes mellitus 08/11/2016 Sleep apnea, unspecified 08/11/2016 Personal history of nicotine dependence 08/11/20 16 Primary hypertension 08/11/2016 Vitamin D deficiency 08/11/2016 Dysphonia 10/08/2015 History of malignant neoplasm of larynx 10/08/20 15 Laryngopharyngeal reflux 04/25/2013 Current Treatment and Therapy Plans No current plan information found. Past Treatment and Therapy Plans No past plan information found. Lifetime Dose Tracking * Chemical Lifetime Dose Automatic Entry Manual Entr y Fluoro Time 1 minutes 1 minutes 0 minutes DLP 694 mGycm 694 mGycm 0 mGycm Resolved Problems Problem Noted Date Diagnosed Date Resolved Date Malignant tumor of larynx 05/18/2022
--- OUTSIDE RECORDS SUMMARY | 2025-11-10 09:21 | XMS_ITS | Encounter Summary ---
Author Organization [facility] Address [address] [place] [address] Care Team Providers Care Bindery Machine Setter Name Role Phone Yuly Srinivasan MD Primary Care Provider [phone] Layo Zavala DO Primary Care Provider [phone] Encounter Details Date Type Department Care Team (Late st Contact Info) Description 09/23/2022 Bulbstorm Message Enc [facility], [address] [address] [place], [facility] Provider labs Social History Tobacco Use Types Packs/Day Years Used Date Smoking Tobacco: Former Cigarettes Smokeless Tobacco: Never Alcohol Use Standard Drinks/Week Comments Not Currently 0 (1 standard drink = 0.6 oz pur e alcohol) Comments Unknown Sex and Gender Information Value Date Recorded Sex Assigned at Female 05/26/2025 11:07 AM CDT Legal Sex Female 4:26 PM CDT Gender Identity Not on file Sexual Orientation Straight 09/15/2022 9: 30 AM CDT COVID-19 Exposure Response Date Recorded In the last 10 days, have yo u been in contact with someone who was confirmed or suspected to have Coronavirus/COVID-19? No / Unsure 09/22/2022 5:56 AM CDT documented as of this encounter Plan of Treatment Not on file documented as of this encounter Visit Diagnoses Not on filedocumented in this encounter Care Teams Bindery Machine Setter Relationship Specialty Start Date End Date Yuly Srinivasan MD [address] [place] [address] [place] [address] PCP - General FAMILY PRACTICE 05/11/22 05/25/25 Layo Zavala DO [address] [place] [address] PCP - General FAMILY PRACTICE 05/26/25 documented as of this encounter
--- OUTSIDE RECORDS SUMMARY | 2025-11-10 09:21 | XMS_ITS | Encounter Summary ---
Author Organization [facility] Address [address] [place] [address] Care Team Providers Care Flask Carrier Name Role Phone Yuly Srinivasan MD Primary Care Provider [phone] Layo Zavala DO Primary Care Provider [phone] Encounter Details Date Type Department Care Team (Late st Contact Info) Description 06/01/2022 Abstract [facility], [address] [address] Lilo Rothman [place] Social History Tobacco Use Types Packs/Day Years [...] was confirmed or suspected to have Coronavirus/COVID-19? Unable to assess 05/25/2022 9:29 AM CDT documented as of this encounter Plan of Treatment Not on file documented as of this encounter Procedures Procedure Name Priority Date/Time Associated Diagnosis Comments PROTIME (OUTSIDE LAB) Routine 04/25/2022 CBC (OUTSIDE LAB) Routine 04/25/2022 COMPREHENSIVE METABOLIC PANEL Routine 04/25/2022 documented in this encounter Results * CBC (OUTSIDE LAB) (04/25/2022) WBC 13.4 HGB 12.5 HCT 40.3 PLT 365 04/25/2022 us [facility] Abstract LAB-OUTSIDE/ABSTRACTED Final Result * PROTIME (OUTSIDE LAB) (04/25/2022) PROTIME 13.0 INR 1.0 04/25/2022 us Doc [facility] Abstract LAB-OUTSIDE/ABSTRACTED Final Result * COMPREHENSIVE METABOLIC PANEL (04/25/2022) SODIUM S/P/B 138 POTASSIUM S/P/B 4.0 CO2 24 CHLORIDE S/P/B 105 GLUCOSE 259 mg/dL CALCIUM S/P/B 8.6 BUN 14 CREATININE S/P/B 0.90 0.5 - 1.0 EGFR NON-AFR. AMER. >60 <=90 ALKALINE PHOSPHATASE S/P/B 72 ALT 52 AST 35 BILIRUBIN TOTAL S/P/B 0.2 ALBUMIN S/P/B 4.5 3.5 - 5.0 TOTAL PROTEIN S/P/B 7.0 04/25/2022 us Doc [facility] Abstract LABORATORY Final Result documented in this encounter Visit Diagnoses Not on filedocumented in this encounter Care Teams Flask Carrier Relationship Specialty Start Date End Date Yuly Srinivasan MD [address] [place] [address] [place] KHAN [address] PCP - General FAMILY PRACTICE 05/11/22 05/25/25 Layo Zavala DO [address] [place] [address] [place] [address] PCP - General FAMILY PRACTICE 05/26/25 documented as of this encounter
--- OUTSIDE RECORDS SUMMARY | 2025-11-10 09:21 | XMS_ITS | Encounter Summary ---
Author Organization [facility] Address [address] [place] [address] Care Team Providers Care Oven Tender Bagels Name Role Phone Yuly Srinivasan MD Primary Care Provider [phone] Layo Zavala DO Primary Care Provider [phone] Encounter Details Date Type Department Care Team (Late st Contact Info) Description 08/26/2022 Ikanos Message Enc [facility], [facility] [address] [place], [place] [id number] Jigar Dhaliwal MD [facility]. [facility] [address] [place], [place] [id number] Heart Ablation Social History Tobacco Use Types Packs/Day Years [...] suspected to have Coronavirus/COVID-19? No / Unsure 08/23/2022 3:20 PM CDT documented as of this encounter Progress Notes * AARON Dunne - 09/27/2022 4:20 PM CST Yes this is ok. P BUCKLER MACHINE * Paris Jimenez - 09/09/2022 2:15 PM CDTFrom: Karime Vale To: Dr Jigar Dhaliwal Sent: 08/26/2022 3:10 PM CDT Subject: Heart Ablation I have been trying to reach Paris to schedule my surgery x 3 days. No response. I need to know when ALEX for my job. I don???t mean to bug anyone but I was told she call me when she got back from lunch when I left the office that day. And I???m also nervous about having another attack. Please reach out to me soon. Thanks in advance. documented in this encounter Plan of Treatment Not on file documented as of this encounter Visit Diagnoses Not on filedocumented in this encounter Care Teams Oven Tender Bagels Relationship Specialty Start Date End Date Yuly Srinivasan MD [address] [place] [address] [place] [address] PCP - General FAMILY PRACTICE 05/11/22 05/25/25 Layo Zavala DO [address] [place] [address] PCP - General FAMILY PRACTICE 05/26/25 documented as of this encounter
--- OUTSIDE RECORDS SUMMARY | 2025-11-10 09:21 | XMS_ITS | Clinical Summary ---
Author Organization [facility] Address [address] [place] [address] Care Team Providers Care Pipe And Test Supervisor Name Role Phone Yuly Srinivasan MD Primary Care Provider [phone] Source Comments [facility],non-owned Affiliates and Associated Physician Practices is amultiple site organization consisting of ambulatory clinics and hospital sitesin [place], [place], [place] and [place]. This disclosure is being madepursuant to the Care Everywhere program and may not contain all information available regarding this patient. Last updated 18.[facility] Allergies No known active allergies Medications * Be aware that medications may not be up to date on this document. Alwaysverify current medications with the patient. LOSARTAN POTASSIUM-HCTZ PO Active PARoxetine HCl (PAXIL PO) Active amLODIPine Besylate (NORVASC PO) Active albuterol HFA (PROVENTIL;SANDRA KENYON;PROAIR) 108 (90 Base) MCG/ACT inhaler Inhale 2 puffs by mouth every 6 hours as needed 1 Inhaler 11/16/2019 Active Social History Tobacco Use Types Packs/Day Years Used Date Smoking Tobacco: Never Smokeless Tobacco: Never Comments No Sex and Gender Information Value Date Recorded Sex Assigned at Not on file Legal Sex Female 5:10 PM GAS WELDING EQUIPMENT MECHANIC Gender Identity Not on file Sexual Orientation Not on file Last Filed Vital Signs Vital Sign Reading Time Taken Comments Blood Pressure 118/72 11/16/2019 5:25 PM GAS WELDING EQUIPMENT MECHANIC Pulse 79 11/16/2019 5:25 PM GAS WELDING EQUIPMENT MECHANIC Temperature 37.2 C (98.9 F) 11/16/2019 5:25 PM GAS WELDING EQUIPMENT MECHANIC Respiratory Rate 16 11/16/2019 5:25 PM GAS WELDING EQUIPMENT MECHANIC Oxygen Saturation 98% 11/16/2019 5:25 PM GAS WELDING EQUIPMENT MECHANIC Inhaled Oxygen Concentration - - Weight 88 kg (194 lb) 11/16/2019 5:25 PM GAS WELDING EQUIPMENT MECHANIC Height 157.5 cm (5' 2) 11/16/2019 5:25 PM GAS WELDING EQUIPMENT MECHANIC Body Mass Index 35.48 11/16/2019 5:25 PM GAS WELDING EQUIPMENT MECHANIC Plan of Treatment Health Maintenance Due Date Last Done Comments COLOGUARD (AGES 45-75) - COL ON CA SCREENING 1967 COLON MONITORING 1967 COLONOSCOPY - COLON CA SCREENING 1967 CT COLONOGRAPHY - COLON CA SCREENING 1967 Colorectal Cancer Screening 1967 FIT - COLON CA SCREENING 1967 FLEX SIG - COLON CA SCREENING 1967 LIPID TESTING 1967 MAMMOGRAM 1967 HIV SCREENING 1982 HEPATITIS C SCREENING 03/16/1985 DTAP/TDAP/TD VACCINES (1 - Tdap) 1986 HEPATITIS B VACCINE (1 of 3 - 19+ 3-dose series) 1986 PNEUMOCOCCAL VACCINE 50+ (1 of 1 - PCV) 2017 ZOSTER VACCINE (1 of 2) 2017 SCREENING FOR DIABETES 11/16/2019 DEPRESSION SCREENING 11/21/2024 COVID-19 VACCINE (1 - 2024-2 6 season) 2025 INFLUENZA VACCINE (#1) 2025 08/21/2017 HIB VACCINE Aged Out No longer eligi ble based on patient's age to complete this topic HPV VACCINE Aged Out No longer eligi ble based on patient's age to complete this topic MENINGOCOCCAL (Group B) VACC INE SHARED DECISION-MAKING Aged Out No longer eligibl e based on patient's age to complete this topic MENINGOCOCCAL GROUPS A/C/Y/W VACCINE Aged Out No longer eligible b ased on patient's age to complete this topic Insurance [employer] Care Teams Pipe And Test Supervisor Relationship Specialty Start Date End Date Yuly Srinivasan MD [address] [place] [phone] PCP - General Family Medicine 11/16/19
--- OUTSIDE RECORDS SUMMARY | 2025-11-10 09:21 | XMS_ITS | Clinical Summary ---
Author Organization [facility] Address [address] [place] [address] Phone Care Team Providers Care Continuity Manager Name Role Phone Yuly Srinivasan MD Primary Care Provider + Allergies Active Allergy Reactions Criticality Noted Date Comments Iodine Unknown 08/17/2022 Latex Unknown 08/17/2022 Medications No known medications Social History Tobacco Use Types Packs/Day Years Used Date Smoking Tobacco: Never Assessed Comments Unknown Sex and Gender Information Value Date Recorded Sex Assigned at Not on file Legal Sex Female 10:05 AM CDT Gender Identity Not on file Sexual Orientation Not on file Last Filed Vital Signs Vital Sign Reading Time Taken Comments Blood Pressure 141/84 08/17/2022 1:35 PM CDT Pulse 97 08/17/2022 12:11 PM CDT Temperature 36.9 C (98.5 F) 08/17/2022 10:34 AM CDT Respiratory Rate 20 08/17/2022 12:11 PM CDT Oxygen Saturation 97% 08/17/2022 12:11 PM CDT Inhaled Oxygen Concentration - - Weight 90.7 kg (200 lb) 08/17/2022 10:34 AM CDT Height 157.5 cm (5' 2) 08/17/2022 10:34 AM CDT Body Mass Index 36.58 08/17/2022 10:34 AM CDT Plan of Treatment Health Maintenance Due Date Last Done Comments DIABETES ANNUAL FOOT EXAM 1985 DIABETES ANNUAL RETINAL EXAM 1985 DIABETES MICROALBUMIN ANNUAL SCREEN 1985 LDL CHOLESTEROL ANNUAL 1985 DTAP/TDAP/TD VACCINES (1 - Tdap) 1986 BREAST CANCER SCREENING 2007 COLORECTAL SCREENING 2012 Colorectal Cancer Screening 2012 FIT-DNA Q 3 years 2012 FIT/FOBT Q 1 year 2012 Flex Sig/CT Colonography Q 5 years 2012 ZOSTER VACCINE (1 of 2) 2017 HEPATITIS B VACCINES (2 of 3 - Hep B Twinrix 3-dose series) 09/24/2019 08/27/2019 DIABETES HBA1C Q 6 MONTHS 11/17/2022 05/18/2022 INFLUENZA VACCINE (#1) 2025 , 09/11/2020, 09/20/2019, Additional history exists Insurance Care Teams Continuity Manager Relationship Specialty Start Date End Date Yuly Srinivasan MD [address] [place] [address] PCP - General Family Practice 08/17/22
--- OUTSIDE RECORDS SUMMARY | 2025-11-10 09:21 | XMS_ITS | Data Portability ---
Author Organization [facility] [employer], Main Office Address [address] [place] [address] Assessment No assessment recorded. Plan of Treatment Reminders Order Date Submit Date Provider Last Modified By Organization Details Last Modified Time Details Appointments None recorded. Lab HbA1c (hemoglobin A1c), blood 2023 024 [email or web address] [facility] ([facility]), [address] [place], [address], 4 08:33:27 HbA1c (hemoglobin A1c), blood 2023 024 [email or web address] Not available 12:45:44 BMP, serum or plasma 2023 024 [email or web address] Not available 4 12:45:57 microalbumi n, urine 2023 024 [email or web address] Not available 4 12:55:13 CBC w/ auto diff 2023 024 [email or web address] Not available 4 12:46:11 ferritin, serum or plasma 2023 024 [email or web address] Not available 4 12:46:22 iron + total iron-bindin g capacity (TIBC), serum 2023 024 [email or web address] Not available 4 12:46:34 lipid panel, serum 2023 024 [email or web address] Not available 4 12:47:23 hepatic function panel, serum 2023 024 [email or web address] Not available 4 12:47:35 TSH, serum or plasma 2023 024 [email or web address] Not available 12:46:47 T4, free, serum 2023 024 [email or web address] Not available 12:46:58 vitamin D3, 25-hydroxy, serum 2023 024 [email or web address] Not available 12:47:10 Referral nutritionis t/dietitian referral - Please call patient to schedule an appointment . Thank you. [email or web address], [address], [place] [address], [place], [address], 08:44:02 Procedures None recorded. Surgeries None recorded. Imaging MAMMO, screening, digital, bilateral 2023 [facility]24 [facility] [address] [place] [address] (Imaging), [address] [place], [address], 4 09:22:33 DEXA [address] ([facility]), [address] [facility], [place], [address], 4 10:29:20 US, neck, soft tissue - *Please call pt to schedule* 2022 023 [email or web address] [facility], [address], [place], [address], 4 12:28:39 Medication Orders Veozah 45 mg tablet 2023 024 [facility]/Pharmacy #[id number], [address], [place], [address], 4 08:24:55 glipizide ER 10 mg tablet, extended release 24 hr 2023 024 [id number], [address], [place], [address], 4 08:24:53 Mounjaro 2.5 mg/0.5 mL subcutaneou s pen injector 2023 024 [id number], [address] [place], [address], 4 08:24:53 zolpidem 10 mg tablet 2023 024 [id number], [address] [place], [address], 4 08:24:57 cyclobenzap rine 10 mg tablet 2023 024 [id number], [address] [place], [address], 4 08:24:53 rosuvastati n 10 mg tablet 2023 024 [id number], [address] [place], [address], 4 08:24:54 venlafaxine ER 225 mg tablet,exte nded release 24 hr 2023 024 [id number], [address] [place], [address], 4 08:24:53 ergocalcife rol (vitamin D2) 1,250 mcg (50,000 unit) capsule 2023 024 [id number], [address] [place], [address], 4 08:24:54 metformin ER 500 mg tablet,exte nded release 24 hr 2023 024 [id number], [address], [place], [address], 4 08:24:54 Veozah 45 mg tablet 2023 024 [id number], [address] [place], [address], 4 12:33:04 glipizide ER 10 mg tablet, extended release 24 hr 2023 024 [id number], [address] [place], [address], 4 12:22:50 Ozempic 0.25 mg or 0.5 mg (2 mg/3 mL) subcutaneou s pen injector 2023 024 [email or web address] [id number] [address] [place], [address], 4 08:18:38 Rybelsus 3 mg tablet 2023 024 [email or web address] [id number], [address] [place], [address], 4 12:12:41 trazodone 100 mg tablet [address]22 [address] [facility], [address] [place] [address], [id number], 4 08:07:33 hydroxyzine HCl 50 mg tablet 2022 [address] [facility], [address] [place] [address], [id number], 4 08:06:35 Ozempic 0.25 mg or 0.5 mg (2 mg/3 mL) subcutaneou s pen injector 2022 023 [email or web address] [facility], [address], [place], [id number], 08:18:38 Patient TargetsNo targets recorded. Patient InstructionsNo instructions recorded. Reason for Referral [place]/dietitian Refer ral for Type 2 diabetes mellitus Please call patient to schedule an appointment. Thank you. Referring Physician: Yuly Srinivasan, Family Medicine, Encounter Date: 03/13/2024 Results Created Date Observation Date Name Description Value Unit Range Abnormal Flag Note LastModifiedBy Organization Detail LastModifiedTime 03/13/20 24 03/13/2024 CBC/C OMPLE TE BLD COUNT W/DIF F white blood cells 8.3 x10'3 /uL 4.2-10 .8 Not Available [facility] (Lab) [address] [place], [address], 03/13/2024 20:07:33 03/13/20 24 03/13/2024 CBC/C OMPLE TE BLD COUNT W/DIF F red blood cells 4.72 x10'6 /uL 3.80-5 .20 Not Available [facility] (Lab) [address] [place], [address], 03/13/2024 20:07:33 03/13/20 24 03/13/2024 CBC/C OMPLE TE BLD COUNT W/DIF F hemoglobin 12.5 g/dL 12.0-1 5.6 Not Available [facility] (Lab) [address] [place], [address], 03/13/2024 20:07:33 03/13/20 24 03/13/2024 CBC/C OMPLE TE BLD COUNT W/DIF F hematocrit 38.8 % 35.7-4 5.7 Not Available [facility] (Lab) [address] [place], [address], 03/13/2024 20:07:33 03/13/20 24 03/13/2024 CBC/C OMPLE TE BLD COUNT W/DIF F mean red cell volume 82.2 fL 82.0-9 9.0 Not Available [facility] (Lab) [address] [place], [address], 03/13/2024 20:07:33 03/13/20 24 03/13/2024 CBC/C OMPLE TE BLD COUNT W/DIF F mean red cell hemoglobin 26.5 pg 27.0-3 3.0 low Not Available [facility] (Lab) [address] [place], [address], 03/13/2024 20:07:33 03/13/20 24 03/13/2024 CBC/C OMPLE TE BLD COUNT W/DIF F mean RBC HGB concentratio n 32.2 g/dL 31.0-3 6.0 Not Available [facility] (Lab) [address] [place], [address], 03/13/2024 20:07:33 03/13/20 24 03/13/2024 CBC/C OMPLE TE BLD COUNT W/DIF F red cell distribution width 12.5 % 11.8-1 5.5 Not Available [facility] (Lab) [address] [place], [address], 03/13/2024 20:07:33 03/13/20 24 03/13/2024 CBC/C OMPLE TE BLD COUNT W/DIF F platelets 326 x10'3 /uL 150-40 0 Not Available [facility] (Lab) [address] [place], [address], 03/13/2024 20:07:33 03/13/20 24 03/13/2024 CBC/C OMPLE TE BLD COUNT W/DIF F mean platelet volume 10.5 fL 9.0-12 .4 Not Available [facility] (Lab) [address] [place], [address], 03/13/2024 20:07:33 03/13/20 24 03/13/2024 CBC/C OMPLE TE BLD COUNT W/DIF F neutrophils 48.1 % 39.0-7 2.0 Not Available [facility] (Lab) [address] [place], [address], 03/13/2024 20:07:33 03/13/20 24 03/13/2024 CBC/C OMPLE TE BLD COUNT W/DIF F lymphocytes 44.7 % 16.0-4 7.0 Not Available [facility] (Lab) [address] [place], [address], 03/13/2024 20:07:33 03/13/20 24 03/13/2024 CBC/C OMPLE TE BLD COUNT W/DIF F monocytes 5.7 % 5.0-12 .0 Not Available [facility] (Lab) [address] [place], [address], 03/13/2024 20:07:33 03/13/20 24 03/13/2024 CBC/C OMPLE TE BLD COUNT W/DIF F eosinophils 0.8 % 1.0-7. 0 low Not Available [facility] (Lab) [address] [place], [address], 03/13/2024 20:07:33 03/13/20 24 03/13/2024 CBC/C OMPLE TE BLD COUNT W/DIF F basophils 0.5 % 0.0-2. 0 Not Available [facility] (Lab) [address] [place], [address], 03/13/2024 20:07:33 03/13/20 24 03/13/2024 CBC/C OMPLE TE BLD COUNT W/DIF F immature granulocytes 0.2 % 0.00-0 .50 Not Available [facility] (Lab) [address] [place], [address], 03/13/2024 20:07:33 03/13/20 24 03/13/2024 CBC/C OMPLE TE BLD COUNT W/DIF F neutrophils, absolute count 3.99 x10'3 /uL 1.5-8. 0 Not Available [facility] (Lab) [address] [place], [address], 03/13/2024 20:07:33 03/13/20 24 03/13/2024 CBC/C OMPLE TE BLD COUNT W/DIF F lymphocytes, absolute count 3.71 x10'3 /uL 1.07-3 .43 high Not Available [facility] (Lab) [address] [place], [address], 03/13/2024 20:07:33 03/13/20 24 03/13/2024 CBC/C OMPLE TE BLD COUNT W/DIF F monocytes, absolute count 0.47 x10'3 /uL 0.29-0 .99 Not Available [facility] (Lab) [address] [place], [address], 03/13/2024 20:07:33 03/13/20 24 03/13/2024 CBC/C OMPLE TE BLD COUNT W/DIF F eosinophils, absolute count 0.07 x10'3 /uL 0.02-0 .53 Not Available [facility] (Lab) [address] [place], [address], 03/13/2024 20:07:33 03/13/20 24 03/13/2024 CBC/C OMPLE TE BLD COUNT W/DIF F basophils, absolute count 0.04 x10'3 /uL 0.01-0 .08 Not Available [facility] (Lab) [address] [place], [address], 03/13/2024 20:07:33 03/13/20 24 03/13/2024 CBC/C OMPLE TE BLD COUNT W/DIF F immature granulocytes ,absolute 0.02 x10'3 /uL 0.00-0 .05 Not Available [facility] (Lab) [address] [place], [address], 03/13/2024 20:07:33 03/13/20 24 03/13/2024 CBC/C OMPLE TE BLD COUNT W/DIF F nucleated red blood cells 0.0 % -0 Not Available [facility] (Lab) [address] [place], [address], 03/13/2024 20:07:33 03/13/20 24 03/13/2024 CBC/C OMPLE TE BLD COUNT W/DIF F NRBC# 0.00 x10'3 /uL Not Available [facility] (Lab) [address] [place], [address], 03/13/2024 20:07:33 03/13/20 24 03/13/2024 TOT IRON MATTHEW NG CAP total iron binding capacity 388 mcg/d L 265-47 5 Not Available [facility] (Lab) [address] [place], [address], 03/13/2024 22:31:37 03/13/20 24 03/13/2024 ELIEL TIN ferritin 52 NG/mL 11.1-2 64 Not Available [facility] (Lab) [address] [place], [address], 03/13/2024 22:32:18 03/13/20 24 03/13/2024 BASIC METAB OLIC PANEL sodium 139 mmol/ L 137-14 5 Not Available [facility] (Lab) [address] [place], [address], 03/13/2024 20:33:36 03/13/20 24 03/13/2024 BASIC METAB OLIC PANEL potassium 4.3 mmol/ L 3.5-5. 1 Not Available [facility] (Lab) [address] [place], [address], 03/13/2024 20:33:36 03/13/20 24 03/13/2024 BASIC METAB OLIC PANEL chloride 99 mmol/ L 98-107 Not Available [facility] (Lab) [address] [place], [address], 03/13/2024 20:33:36 03/13/20 24 03/13/2024 BASIC METAB OLIC PANEL carbon dioxide 32 mmol/ L 22-30 high Not Available [facility] (Lab) [address] [place], [address], 03/13/2024 20:33:36 03/13/20 24 03/13/2024 BASIC METAB OLIC PANEL anion gap 12.3 mmol/ L 14-22 low Not Available [facility] (Lab) [address] [place], [address], 03/13/2024 20:33:36 03/13/20 24 03/13/2024 BASIC METAB OLIC PANEL glucose 193 mg/dL 70-99 high Not Available [facility] (Lab) [address] [place], [address], 03/13/2024 20:33:36 03/13/20 24 03/13/2024 BASIC METAB OLIC PANEL BUN 13 mg/dL 8-19 Not Available [facility] (Lab) [address] [place], [address], 03/13/2024 20:33:36 03/13/20 24 03/13/2024 BASIC METAB OLIC PANEL creatinine 0.69 mg/dL 0.66-1 .25 Not Available [facility] (Lab) [address] [place], [address], 03/13/2024 20:33:36 03/13/20 24 03/13/2024 BASIC METAB OLIC PANEL GFR >60 Refer ence Range : [place] GFR Healt hy Adult : >60 mL/mi n/1.7 3 m2 Chron ic Kidne y Disea se: 15-60 mL/mi n/1.7 3 m2 Kidne y Failu re: <15/m L/min /1.73 m2 www.n iddk. nih.g ov The MDRD study equat ion has not been valid ated in child choco <18 years of age; pregn ant women ; the elder ly >85 years of age; or in some racia l or ethni c subgr oups, such as Hispa nics. Outsi de the valid ated elizabeth eters , estim ated GFR is less accur ate, requi ring clini silvano judgm ent on a case- by-ca se basis . Clini silvano inter preta tion for other races and ages must be made by the clini jocelyn. The MDRD study equat ion has not been valid ated for the evalu ation of serum creat inine relat ed to nutri monika l statu s or medic ation usage . For perso ns <18 years of age, a pedia tric GFR calcu lator is avail able on the [facility] websi te: https ://tom stoner.farhat rg/pr ofess ional s/kdo qi/gf r_cal culat or Not Available [facility] (Lab) [address] [place], [address], 03/13/2024 20:33:36 03/13/20 24 03/13/2024 BASIC METAB OLIC PANEL calcium 10.2 mg/dL 8.4-10 .2 Not Available [facility] (Lab) [address] [place], [address], 03/13/2024 20:33:36 03/13/20 24 03/13/2024 LIPID PANEL cholesterol 107 mg/dL 140-19 9 low [facility] NSUS RECOM MENDA TION FOR YOU STERO L: ADULT CHILD LOW RISK: <200 <170 BORDE RLINE : <200- 239 ----- HIGH RISK: >240 >200 Not Available [facility] (Lab) [address] [place], [address], 03/13/2024 20:33:42 03/13/20 24 03/13/2024 LIPID PANEL triglyceride s 76 mg/dL 0-150 [facility] NSUS REPOR T RECOM MENDA TION FOR TRIGL YCERI RAMY: ADULT CHILD LOW RISK: <150 ----- BODER LINE: 150-1 99 ----- HIGH RISK: >200 ----- Not Available [facility] (Lab) [address] [place], [address], 03/13/2024 20:33:42 03/13/20 24 03/13/2024 LIPID PANEL HDL cholesterol 47 mg/dL 40- Not Available [facility] (Lab) [address] [place], [address], 03/13/2024 20:33:42 03/13/20 24 03/13/2024 LIPID PANEL LDL cholesterol, calculated 45 mg/dL 0-130 [facility] NSUS REPOR T RECOM MENDA TIONS FOR LDL: ADULT CHILD LOW RISK <130 <110 (OPTI MAL LDL) <100 ----- NENA RLINE : 130-1 59 ----- HIGH RISK: >160 >130 A TRIGL YCERI DE RESUL T >400 INVAL IDATE S THE CALCU LATIO N FOR LDL FRACT IONAT ION - THE LDL RESUL T WILL NOT BE REPOR SAUL. Not Available [facility] (Lab) [address] [place], [address], 03/13/2024 20:33:42 03/13/20 24 03/13/2024 HEPAT IC/LI STEFANIE PANEL alkaline phosphatase 81 U/L 38-[address] [facility] (Lab) [address] [place], [address], 03/13/2024 20:33:47 03/13/20 24 03/13/2024 HEPAT IC/LI STEFANIE PANEL alanine aminotransfe rase 62 U/L 0-35 high Not Available [facility] (Lab) [address] [place], [address], 03/13/2024 20:33:47 03/13/20 24 03/13/2024 HEPAT IC/LI STEFANIE PANEL aspartate aminotransfe rase 50 U/L 15-37 high Not Available [facility] (Lab) [address] [place], [address], 03/13/2024 20:33:47 03/13/20 24 03/13/2024 HEPAT IC/LI STEFANIE PANEL bilirubin, total 0.40 mg/dL 0.20-1 .30 Not Available [facility] (Lab) [address] [place], [address], 03/13/2024 20:33:47 03/13/20 24 03/13/2024 HEPAT IC/LI STEFANIE PANEL bilirubin, conjugated (direct) 0.00 mg/dL 0.00-0 .30 Not Available [facility] (Lab) [address] [place], [address], 03/13/2024 20:33:47 03/13/20 24 03/13/2024 HEPAT IC/LI STEFANIE PANEL biliurubin,u ncong. (indirect) 0.10 mg/dL 0.00-1 .1 Not Available [facility] (Lab) [address] [place], [address], 03/13/2024 20:33:47 03/13/20 24 03/13/2024 HEPAT IC/LI STEFANIE PANEL total protein 7.2 g/dL 6.3-8. 2 Not Available [facility] (Lab) [address] [place], [address], 03/13/2024 20:33:47 03/13/20 24 03/13/2024 HEPAT IC/LI STEFANIE PANEL albumin 4.7 g/dL 3.4-5. 0 Not Available [facility] (Lab) [address] [place], [address], 03/13/2024 20:33:47 03/13/20 24 03/13/2024 HEPAT IC/LI STEFANIE PANEL globulin 2.5 g/dL 2.6-4. 2 low Not Available [facility] (Lab) [address] [place], [address], 03/13/2024 20:33:47 03/13/20 24 03/13/2024 HEPAT IC/LI STEFANIE PANEL A/G ratio 1.9 ratio 1.0-2. 0 Not Available [facility] (Lab) [address] [place], [address], 03/13/2024 20:33:47 03/13/20 24 03/13/2024 MICRO ALBUM IN RANDO M URINE microalbumin , urine 18.7 mg/L 0.0-16 .6 high Not Available [facility] (Lab) [address] [place], [address], 03/13/2024 20:40:21 03/13/20 24 03/13/2024 T4 FREE free T4 0.97 NG/dL 0.78-2 .19 Not Available [facility] (Lab) [address] [place], [address], 03/13/2024 20:51:20 03/13/20 24 03/13/2024 HEMOG LOBIN A1C HA1C 10.2 % 4.0-6. 0 high Diabe micaela Scree estevan Crite hemanth: <5.7% Consi stent with absen ce of diabe micaela 5.7-6 .4% Consi stent with incre ased risk for diabe micaela (pred iabet es) >OR=6 .5% Consi stent with diabe micaela REFER ENCE: Diabe micaela Care 2016, 39(Tavarez ppl.1 ):s13 -s22 Not Available [facility] (Lab) [address] [place], [address], 03/13/2024 20:56:25 03/13/20 24 03/13/2024 TSH thyroid-stim ulating hormone 0.599 uIU/m L 0.465- 4.680 Not Available [facility] (Lab) [address] [place], [address], 03/13/2024 21:45:27 03/13/20 24 03/15/2024 IRON SERUM /FE iron 90 mcg/d L 42-175 Not Available [facility] (Lab) [address] [place], [address], 03/15/2024 18:47:06 03/13/20 24 03/23/2024 25-HY DROXY VITAM IN D LCMS D2+D3 25-hydroxy, vitamin D 20 NG/mL low Refer ence Range : All Ages: Targe t level s 30 - 100 Not Available [facility] (Lab) [address] [place], [address], 03/23/2024 01:07:31 03/13/20 24 03/23/2024 25-HY DROXY VITAM IN D LCMS D2+D3 25-hydroxy, vitamin D-2 11 NG/mL This test was devel oped and its perfo rmanc e damir cteri stics deter mined by [facility]. It has not been clear ed or appro betsey by the Food and Drug Admin istra tion. Not Available [facility] (Lab) [address] [place], [address], 03/23/2024 01:07:31 03/13/20 24 03/23/2024 25-HY DROXY VITAM IN D LCMS D2+D3 25-hydroxy, vitamin D-3 9.0 NG/mL This test was devel oped and its perfo rmanc e damir cteri stics deter mined by [facility]. It has not been clear ed or appro betsey by the Food and Drug Admin istra tion. Perfo rmed at: [facility] [employer] [address] [place] [id number] Lab Direc tor: Ebenezer moore MD, Phone : [phone] Not Available [facility] (Lab) [address] [place], [address], 03/23/2024 01:07:31 11/28/19 24 11/28/2023 XR, foot No observ ation record ed. [address], [place], [address], 04/01/2024 13:44:26 12/05/19 24 12/02/2023 US, neck, soft tissu e No observ ation record ed. [email or web address] [facility] [address], [place], [address], 12/05/2023 14:14:17 01/23/20 24 01/09/2024 CT, neck, soft tissu e, w/o contr ast No observ ation record ed. [address]/[facility] [address] [place], [address], 04/01/2024 13:44:51 05/31/20 24 05/31/2024 MRI, shoul harinder, w/o contr ast No observ ation record ed. [email or web address] [facility] [address], [place], [address], 06/14/2024 08:29:54 06/29/20 24 06/28/2024 imagi ng/di agnos tic resul t No observ ation record ed. [facility] [address], [place], [address], 07/13/2024 18:16:59 Result Notes None recorded. Problems Name Problem SNOMED Code Status Onset Date Resolution Date Notes Provider Name and Address Organization Details Recorded Time Electrocardio gram abnormal 293388264 Active Not Available [facility] 4 12:17:12 Constipation 98694028 Active Not Available [facility] 4 12:17:12 Pain in throat 967836122 Active Not Available [facility] 4 12:17:12 Adjustment disorder 47579709 Active Not Available [facility] 4 12:17:12 Insomnia 006777598 Active Not Available [facility] 4 12:17:12 Abdominal pain 77489312 Active Not Available [facility] 4 12:17:12 [place]: positive 236521962 Active Not Available [facility] 4 12:17:12 Low back pain 405259017 Active Not Available [facility] 4 12:17:12 Vitamin D deficiency 38468809 Active Not Available [facility] 4 12:17:12 Malignant neoplasm of larynx 663745204 Active Not Available [facility] 4 12:17:12 Macromastia 555703512 Active Not Available [facility] 4 12:17:12 Chronic sinusitis 45165411 Active Not Available [facility] 4 12:17:12 Dizziness 685364129 Active Not Available [facility] 4 12:17:12 Cramp in lower limb 756999166 Active Not Available [facility] 4 12:17:12 Pain of shoulder region 18392079 Active Not Available [facility] 4 12:17:13 Dysuria 76135781 Active Not Available [facility] 4 12:17:13 Essential hypertension 46840604 Active Not Available [facility] 4 12:17:13 Diabetes mellitus 86791527 Active Not Available [facility] 4 12:17:13 Obstructive sleep apnea syndrome 03803845 Active cpap Not Available [facility] 4 12:17:13 Hyperglycemia 26400721 Active Not Available [facility] 4 12:17:13 Fatigue 39679749 Active Not Available [facility] 4 12:17:13 Anemia 092320155 Active 2017 Not Available [facility] 4 12:17:12 Hyperlipidemi a 16994491 Active 2019 Not Available [facility] 4 12:17:13 Supraventricu lar tachycardia 8322148 Active 2021 Not Available [facility] 4 12:17:13 Thyroid function tests abnormal 197624559 Active 2022 Not Available [facility] 4 12:17:12 Type 2 diabetes mellitus 98936891 Active 2022 Not Available [facility] 4 12:17:12 Mixed anxiety and depressive disorder 686190590 Active 2022 Not Available [facility] 4 12:17:12 Hematoma of lower leg 516922589 Active 2022 Not Available [facility] 4 12:17:12 Vaginitis 53292733 Active 2022 Not Available [facility] 4 12:17:12 Spasm 93038652 Active 2022 Not Available [facility] 4 12:17:13 Cervical lymphadenopat hy 308534052 Active 2022 Not Available [facility] 4 12:17:12 Sore throat 508871676 Active 2022 Not Available [facility] 4 12:17:12 Chronic sialadenitis 047480784 Active 2023 Yuly Srinivasan MD [address], [address] , [employer] 4 12:27:50 Postmenopausa l [place] 265860186 Active 2023 Yuly Srinivasan MD [address], [address] , [employer] 4 12:28:09 Notes:Some problems listed i n Document: #[id number] could not be added to this patient's chart. Please review this document and add these problems to the patient's chart manually as needed. Problem Notes None recorded. Medical Equipment None Reported. Allergies Allergen ID Allergen Name Allergen Category Reaction Reaction Severity Criticality Documentation Date Start Date Code Code System Note Provider Name and Address Organization Details Recorded Time latex environme nt,medica tion Not available Not available Not available 01/19/2023 [id number] RxNorm Not Available [facility] 3 08:13:38 Iodinated contrast media (substanc e) medicatio n anaphylax is Not available Not available 01/19/2023 [id number] 2003 SNOMED does not remem shila if was IV or oral, when she had it it was [facility] 3 08:13:38 Medications Name Sig Start Date Stop Date Status Note LastModified by Organization Details LastModified Time losartan 50 mg tablet Take 1 tablet every day by oral route. 09/27 completed Not Available Not Available Not Available cyclobenz aprine 10 mg tablet TAKE 1 TABLET BY MOUTH THREE TIMES A DAY NEEDED active Not Available Not Available No t Available amoxicill in 500 mg capsule TAKE 1 CAPSULE BY MOUTH 3 TIMES A DAY UNTIL GONE 08/12 completed Not Available Not Available Not Available furosemid e 40 mg tablet Take 1 tablet every day by oral route as needed. 02/27 completed Not Available Not Available Not Available fluconazo le 100 mg tablet TAKE 1 AND 1/2 TABLETS BY MOUTH DAILY FOR 2 DAYS 01/31 completed Not Available Not Available Not Available atorvasta tin 40 mg tablet TAKE ONE TABLET BY MOUTH DAILY AT BEDTIME 02/27 completed Not Available Not Available Not Available nystatin 100,000 unit/mL oral suspensio n active Not Available Not Available Not Available venlafaxi ne ER 37.5 mg capsule,e xtended release 24 hr 01/07 completed Not Available Not Available Not Available doxycycli ne hyclate 100 mg capsule TAKE 1 CAPSULE BY MOUTH TWICE A DAY FOR 7 DAYS 01/04 completed Not Available Not Available Not Available paroxetin e 10 mg tablet TAKE ONE TABLET BY MOUTH ONCE DAILY 02/02 completed Not Available Not Available Not Available albuterol sulfate 2.5 mg/3 mL (0.083 %) solution for nebulizat ion Inhale 3 mL 4 times a day by nebuliza tion route as needed. 06/14 completed Not Available Not Available Not Available ibuprofen 800 mg tablet TAKE 1 TABLET BY MOUTH EVERY 6 HOURS NEEDED FOR PAIN. 06/14 completed Not Available Not Available Not Available fluconazo le 150 mg tablet TAKE 1 TABLET (150 MG TOTAL) BY MOUTH ONCE FOR 1 DOSE. 01/31 completed Not Available Not Available Not Available metoprolo l succinate ER 50 mg tablet,ex tended release 24 hr Take 1 tablet every day by oral route. 01/29 completed 2 po qday 08/29/18 Not Available Not Available Not Available hydrocodo ne 5 mg-acetam inophen 325 mg tablet TAKE 1 TABLET BY MOUTH EVERY 6 HOURS NEEDED FOR PAIN 05/05 completed Not Available Not Available Not Available ondansetr on HCl 8 mg tablet TAKE 1 TABLET BY MOUTH THREE TIMES A DAY NEEDED FOR NAUSEA active Not Available Not Available No t Available fluconazo le 200 mg tablet active Not Available Not Available Not Available glipizide ER 10 mg tablet, extended release 24 hr Take 2 tablets every day by oral route. active Not Available Not Available No t Available metronida zole 0.75 % (37.5 mg/5 gram) vaginal gel Insert 1 applicat orful every day by vaginal route for 5 days. 08/09 completed Not Available Not Available Not Available Medrol (Heath) 4 mg tablets in a dose pack take as directed on label 05/03 completed Not Available Not Available Not Available prednison e 20 mg tablet TAKE 1 TABLET ORAL ROUTE ONCE DAILY FOR 5 DAYS 11/02 completed Not Available Not Available Not Available Zithromax Z-Heath 250 mg tablet TAKE 2 TABLETS (500 MG) BY ORAL ROUTE ONCE DAILY FOR 1 DAY THEN 1 TABLET (250 MG) BY ORAL ROUTE ONCE DAILY FOR 4 DAYS active Not Available Not Available No t Available clindamyc in HCl 150 mg capsule 01/07 completed Not Available Not Available Not Available amlodipin e 2.5 mg tablet TAKE 1 TABLET BY MOUTH EVERY DAY 05/05 completed Not Available Not Available Not Available metronida zole 500 mg tablet Take 1 tablet twice a day by oral route for 7 days. 09/27 completed Not Available Not Available Not Available hydroxyzi ne HCl 50 mg tablet TAKE ONE TABLET EVERY NIGHT AT BEDTIME NEEDED FOR SLEEP 2023 active Not Available Not Available Not Avai lable phentermi ne 37.5 mg tablet TAKE 1 TABLET BY MOUTH EVERY DAY 05/05 completed Not Available Not Available Not Available acetamino phen 300 mg-codein e 30 mg tablet TAKE 1 TABLET BY MOUTH EVERY 6-8 HOURS NEEDED FOR PAIN 05/04 completed Not Available Not Available Not Available ciproflox acin 250 mg tablet Take 1 tablet twice a day by oral route for 7 days. 08/04 completed Not Available Not Available Not Available ciproflox acin 500 mg tablet TAKE 1 TABLET BY MOUTH TWICE A DAY FOR 7 DAYS 01/04 completed Not Available Not Available Not Available Tamiflu 75 mg capsule Take 1 capsule every day by oral route for 10 days. 02/27 completed Not Available Not Available Not Available sulfameth oxazole 800 mg-trimet hoprim 160 mg tablet TAKE 1 TABLET BY MOUTH TWICE A DAY 09/15 completed Not Available Not Available Not Available omeprazol e 40 mg capsule,d elayed release 02/27 completed taking bid Not Available Not Available Not Available acetamino phen 500 mg tablet TAKE 1 TABLET BY MOUTH EVERY 6 HOURS NEEDED FOR PAIN. 06/14 completed Not Available Not Available Not Available losartan 100 mg-hydroc hlorothia zide 25 mg tablet TAKE 1 TABLET BY MOUTH EVERY DAY active Not Available Not Available No t Available oxycodone -acetamin ophen 5 mg-325 mg tablet active Not Available Not Available Not Available Guaiatuss in AC 10 mg-100 mg/5 mL oral liquid TAKE 10 MILLILIT ERS BY MOUTH EVERY 6 HOURS NEEDED 01/04 completed Not Available Not Available Not Available amoxicill in 875 mg tablet TAKE 1 TABLET BY MOUTH EVERY 12 HOURS FOR 7 DAYS 12/05 completed Not Available Not Available Not Available temazepam 15 mg capsule 1-2 po qhs prn insomnia 02/27 completed Not Available Not Available Not Available trazodone 100 mg tablet TAKE ONE TABLET EVERY NIGHT AT BEDTIME NEEDED FOR SLEEP 06/14 completed Not Available Not Available Not Available benzonata te 100 mg capsule TAKE 1 CAPSULE ORAL ROUTE EVERY 8 HOURS NEEDED 09/15 completed Not Available Not Available Not Available hydrocodo ne 7.5 mg-acetam inophen 325 mg tablet active Not Available Not Available Not Available paroxetin e 20 mg tablet Take 1 tablet every day by oral route. 04/22 completed Not Available Not Available Not Available triamcino lone acetonide 0.1 % topical ointment APPLY A THIN LAYER TO THE AFFECTED AREA TOPICALL Y TWO TIMES A DAY NEEDED FOR RASH 06/14 completed Not Available Not Available Not Available nystatin 100,000 unit/gram topical cream APPLY TO THE AFFECTED AREA(S) BY TOPICAL ROUTE 2 TIMES PER DAY NEEDED 01/31 completed Not Available Not Available Not Available lisinopri l 10 mg tablet 1 po qday 08/25 completed Not Available Not Available Not Available polymyxin B sulfate 10,000 unit-trim ethoprim 1 mg/mL eye drops 2 drops in affected eye q8 hours for 7 days 02/27 completed Not Available Not Available Not Available progester one micronize d 200 mg capsule TAKE 1 CAPSULE BY MOUTH AT NIGHT 05/05 completed Not Available Not Available Not Available sertralin e 25 mg tablet 1 po qday 09/27 completed Not Available Not Available Not Available omeprazol e 20 mg capsule,d elayed release Take 1 capsule twice a day by oral route. 05/13 completed Not Available Not Available Not Available budesonid e 0.5 mg/2 mL suspensio n for nebulizat ion MIX 1 AMPULE IN 250 ML OF SALINE(N EILMED BOTTLE) & IRRIGATE EACH NOSTRIL WITH 1/2 BOTTLE TWICE A DAY 06/14 completed Not Available Not Available Not Available estradiol 2 mg tablet Take 1 tablet every day by oral route. 10/29 completed Not Available Not Available Not Available diclofena c sodium 75 mg tablet,de layed release TAKE 1 TABLET BY MOUTH TWICE A DAY 06/14 completed Not Available Not Available Not Available zolpidem 5 mg tablet active Not Available Not Available Not Available furosemid e 20 mg tablet Take 1 tablet every day by oral route as needed. 05/13 completed Not Available Not Available Not Available estradiol 0.5 mg tablet Take 1 tablet every day by oral route. 02/02 completed Not Available Not Available Not Available metoprolo l succinate ER 25 mg tablet,ex tended release 24 hr TAKE 1 TABLET (25 MG TOTAL) BY MOUTH DAILY. 12/16 completed Not Available Not Available Not Available ergocalci ferol (vitamin D2) 1,250 mcg (50,000 unit) capsule TAKE 1 CAPSULE BY MOUTH ONE TIME PER WEEK active Not Available Not Available No t Available lorazepam 1 mg tablet TAKE 1/2 TO 1 TABLET BY MOUTH TWICE DAILY NEEDED 05/31 completed Not Available Not Available Not Available ibuprofen 600 mg tablet TAKE 1 TABLET BY MOUTH EVERY 6 HOURS NEEDED FOR PAIN 12/16 completed Not Available Not Available Not Available cefuroxim e axetil 500 mg tablet TAKE 1 TABLET BY MOUTH EVERY 12 HOURS 05/05 completed Not Available Not Available Not Available zolpidem 10 mg tablet TAKE 1 TABLET BY MOUTH EVERY DAY AT BEDTIME NEEDED active Not Available Not Available No t Available albuterol sulfate HFA 90 mcg/actua tion aerosol inhaler Inhale 2 puffs every 4 hours by inhalati on route. 06/14 completed Not Available Not Available Not Available Prozac 10 mg capsule Take 1 capsule every day by oral route as directed . 10/29 completed Not Available Not Available Not Available cefdinir 300 mg capsule TAKE 1 CAPSULE BY MOUTH EVERY 12 HOURS 08/12 completed Not Available Not Available Not Available losartan 100 mg tablet Take 1 tablet every day by oral route. 01/29 completed Not Available Not Available Not Available fluticaso ne propionat e 50 mcg/actua tion nasal spray,[employer] pension SPRAY 2 SPRAYS INTO EACH NOSTRIL EVERY DAY active Not Available Not Available No t Available metformin ER 500 mg tablet,ex tended release 24 hr TAKE 1 TABLET BY MOUTH EVERY DAY 2023 active Not Available Not Available Not Avai lable Augmentin 500 mg-125 mg tablet Take 1 tablet every 12 hours by oral route for 7 days. 08/04 completed Not Available Not Available Not Available naproxen 500 mg tablet TAKE 1 TABLET BY MOUTH TWICE A DAY active Not Available Not Available No t Available amoxicill in 875 mg-potass ium clavulana te 125 mg tablet TAKE 1 TABLET BY MOUTH TWICE A DAY FOR 7 DAYS 01/31 completed Not Available Not Available Not Available buspirone 15 mg tablet Take 1 tablet twice a day by oral route as needed. 02/02 completed Not Available Not Available Not Available oxycodone 5 mg tablet TAKE 1 TABLET BY MOUTH EVERY 4 HOURS NEEDED FOR PAIN 06/14 completed Not Available Not Available Not Available cyclobenz aprine 5 mg tablet TAKE 1 TABLET BY MOUTH THREE TIMES A DAY 02/02 completed Not Available Not Available Not Available OraMagicR x mouthwash 10 ml rinse and spit q4-6 hours prn 07/27 completed Not Available Not Available Not Available Premarin 1.25 mg tablet 05/13 completed Not Available Not Available Not Available rosuvasta tin 10 mg tablet TAKE 1 TABLET BY MOUTH EVERYDAY AT BEDTIME 2023 active Not Available Not Available Not Avai lable bupropion HCl XL 150 mg 24 hr tablet, extended release Take 1 tablet every day by oral route. active Not Available Not Available No t Available escitalop magdaleno 5 mg tablet Take 1 tablet(s ) every day by oral route. 05/13 completed Not Available Not Available Not Available metoprolo l tartrate 25 mg tablet TAKE 1/2 (ONE HALF) A TABLET BY MOUTH TWICE DAILY 06/14 completed Not Available Not Available Not Available nitrofura ntoin monohydra te/macroc rystals 100 mg capsule Take 1 capsule every 12 hours by oral route for 7 days. active Not Available Not Available No t Available eszopiclo ne 3 mg tablet 1 po qhs prn insomnia 04/10 completed Not Available Not Available Not Available Clindesse 2 % vaginal cream,ext ended release 01/07 completed Not Available Not Available Not Available losartan 100 mg-hydroc hlorothia zide 12.5 mg tablet Take 1 tablet every day by oral route. 05/03 completed has not been taking Not Available Not Available Not Available levocetir izine 5 mg tablet TAKE 1 TABLET BY MOUTH EVERY DAY NEEDED active Not Available Not Available No t Available Enjuvia 0.9 mg tablet 05/13 completed Not Available Not Available Not Available venlafaxi ne ER 225 mg tablet,ex tended release 24 hr TAKE 1 TABLET BY MOUTH EVERY DAY 2023 active Not Available Not Available Not Avai lable venlafaxi ne ER 150 mg tablet,ex tended release 24 hr TAKE 1 TABLET BY MOUTH EVERY DAY 05/05 completed Not Available Not Available Not Available venlafaxi ne ER 75 mg tablet,ex tended release 24 hr TAKE 1 TABLET BY MOUTH DAILY 12/16 completed Not Available Not Available Not Available Senexon-S 8.6 mg-50 mg tablet TAKE 1 TABLET BY MOUTH EVERY DAY 06/14 completed Not Available Not Available Not Available azelastin e 137 mcg-fluti casone 50 mcg/spray nasal spray INSTILL 1 SPRAY INTO EACH NOSTRIL EVERY 12 HOURS X7 DAYS active Not Available Not Available No t Available Minivelle 0.1 mg/24 hr transderm al patch 01/07 completed Not Available Not Available Not Available Jardiance 10 mg tablet TAKE 1 TABLET BY MOUTH EVERY DAY 08/12 completed Not Available Not Available Not Available Viibryd 10 mg (7)-20 mg (23) tablets in a dose pack Take 1 tablet every day by oral route. 05/13 completed Dispense Qty: 30. Not Available Not Available Not Available Ozempic 0.25 mg or 0.5 mg (2 mg/1.5 mL) subcutane ous pen injector Inject 0.25 mg every week by subcutan eous route. 01/31 completed Not Available Not Available Not Available EC-Naprox en 500 mg tablet,de layed release TAKE 1 TABLET BY MOUTH TWICE A DAY active Not Available Not Available No t Available BD Donna 2nd Gen Pen Needle 32 gauge x 5/32 active Not Available Not Available Not Available Rybelsus 3 mg tablet Take 1 tablet every day by oral route. 03/13 completed Not Available Not Available Not Available Ozempic 1 mg/dose (4 mg/3 mL) subcutane ous pen injector 1 mg sc qweek active Not Available Not Available No t Available Paxlovid 300 mg (150 mg x 2)-100 mg tablets in a dose pack TAKE 2 NIRMATRE LVIR AND 1 RITONAVI R TABLETS BY MOUTH TOGETHER TWICE DAILY FOR 5 DAYS 02/01 completed Not Available Not Available Not Available Mounjaro 2.5 mg/0.5 mL subcutane ous pen injector active Not Available Not Available Not Available FreeStyle Willem 3 Sensor device USE DIRECTED . active Not Available Not Available No t Available Ozempic 0.25 mg or 0.5 mg (2 mg/3 mL) subcutane ous pen injector active Not Available Not Available Not Available Veozah 45 mg tablet TAKE 1 TABLET BY MOUTH EVERY DAY active Not Available Not Available No t Available Vitals Date Recorded Body height Body mass index (BMI) Body weight Body temperature Heart rate Oxygen saturation Systolic And Diastolic Provider Name and Address Organization Details Last Updated DateTime 160.66 cm 34.3 kg/m2 34916.5 1 g 97.2 [degF] 88 /min 96 % 146/90 mm[Hg] Johann Wong RN [facility] [email or web address] [facility] 4 08:04:56 Date Recorded Body height Body mass index (BMI) Body weight Body temperature Heart rate Oxygen saturation Systolic And Diastolic Provider Name and Address Organization Details Last Updated DateTime 4 160.66 cm 33.9 kg/m2 23669.3 3 g 97.5 [degF] 90 /min 96 % 144/70 mm[Hg] Johann Wong RN [facility] [employer] [facility] 4 12:09:53 Date Recorded Body height Body mass index (BMI) Body weight Body temperature Heart rate Oxygen saturation Systolic And Diastolic Provider Name and Address Organization Details Last Updated DateTime 4 160.66 cm 35.1 kg/m2 43708.4 7 g 98.5 [degF] 91 /min 99 % 140/72 mm[Hg] Tricia Lilly RN [facility] [email or web address] [facility] 4 08:09:30 Date Recorded Body height Body mass index (BMI) Body weight Body temperature Oxygen saturation Heart rate Systolic And Diastolic Provider Name and Address Organization Details Last Updated DateTime 3 160.66 cm 33.7 kg/m2 28203.7 4 g 97.3 [degF] 95 % 96 /min 140/80 mm[Hg] Johann Wong RN [facility] [email or web address] [facility] 3 08:05:06 Social History Question Answer Notes LastModified by Organizat ion Details LastModified Time Tobacco Smoking Status Former Smoker quit 2011 Not Available [facility] 01/19/2023 08:06:14 Do You Have An Advance Directive? No [id number] Information not available 01/19/2023 What Is Your Level Of Caffeine Consumption? Occasional [id number] Information not available 01/19/2023 In The 14 Days Before Symptom Onset, Have You Had Close Contact With A Laboratory-confir med COVID-19 While That Case Was Ill? No MIGRATION. Information not available 01/19/2023 In The 14 Days Before Symptom Onset, Have You Had Close Contact With A Person Who Is Under Investigation For COVID-19 While That Person Was Ill? No [id number] Information not available 01/19/2023 What Type Of Diet Are You Following? REGULAR [id number] Information not available 01/19/2023 What Was The Date Of Your Most Recent Tobacco Screening? 08/12/2022 [id number] Information not available 01/19/2023 Do You Use Sunscreen Routinely? No [id number] Information not available 01/19/2023 Has Tobacco Cessation Counseling Been Provided? No [id number] Information not available 01/19/2023 Have You Recently Traveled Abroad? No [id number] Information not available 01/19/2023 Do You Have Any Dietary Restrictions? No [id number] Information not available 01/19/2023 Sex: Unknown Functional Status Question Answer Note LastModified by Organizat ion Details LastModified Time Do you use any illicit or recreational drugs? No [id number] Information not available 01/19/2023 Do you or have you ever used any other forms of tobacco or nicotine? No [id number] Information not available 01/19/2023 What is your level of alcohol consumption? None [id number] Information not available 01/19/2023 What is your exercise level? None [id number] Information not available 01/19/2023 Mental Status None recorded. Family History Relationship Description Onset Age of this Age Resolved Age Notes LastModified by Organization Details LastModified Time Mother No current problems or disability [id number] Not available 01/19/2023 08:06:36 Notes:No breast, colon, ovar y cancer Medical History Condition Response CANCER: SPECIFY Y ANEMIA/BLOOD DISORDER Y DIZZINESS Y SLEEP APNEA Y DIABETES, TYPE Y BACK / NECK PROBLEMS Y INSOMNIA Y HYPERTENSION Y HIGH CHOLESTEROL / HYPERLIPIDEMIA Y Gynecological History Statement/Question Response STIs/STDs N Breast Problems no Discharge no Sexually Active? Y Obstetrics History GPAL:G 0 P 0 0 0 0 Immunizations Vaccine Type Date Status Note Provider Nam e and Address Organization Details Recorded Time Influenza, split virus, quadrivalent, preservative 7 completed Not Available [facility] 12/05/2023 03:33:36 Past Encounters Encounter ID Performer Location Encounter Start Date Encounter Closed Date Diagnosis/Indication Diagnosis SNOMED-CT Code Diagnosis ICD10 Code Diagnosis IMO Codes Diagnosis Note [id number] Yuly Srinivasan MD [facility] [place] [address] [place] [address] 02/02/2021 00:00:00 02/02/2021 09:01:14 [id number] Yuly Srinivasan MD [facility] Primary [facility] [place] [address] [place] [address] 04/14/2021 00:00:00 04/16/2021 16:13:44 [id number] Yuly Srinivasan MD [facility] Primary [facility] [place] [address] [place] [address] 09/22/2021 00:00:00 09/22/2021 16:29:23 [id number] AARON Velarde [facility] Primary [facility] [place] [address] [place] [address] 03/08/2022 00:00:00 03/08/2022 17:24:58 [id number] Yuly Srinivasan MD [facility] Primary [facility] [place] [address] [place] [address] 05/05/2022 00:00:00 05/20/2022 09:50:41 [id number] Yuly Srinivasan MD [facility] Primary [facility] [place] [address] [place] [address] 08/12/2022 00:00:00 08/18/2022 14:04:01 [id number] Yuly Srinivasan MD [facility] Primary [facility] [place] [address] [place] [address] 12/16/2022 00:00:00 12/21/2022 08:58:23 [id number] Yuly Srinivasan MD [facility] Primary [facility] [place] [address] [place] [address] 01/04/2023 00:00:00 01/16/2023 17:19:19 [id number] Yuly Srinivasan MD [facility] Primary Care [place] [address] [place] [address] 02/01/2023 08:04:17 02/01/2023 08:33:00 Anemia 634599231 D64.9 numbers improved at last check, likely due to surgery in Decrecheck labs to monitor stability Type 2 abe betes mellitus 11716984 E11.9 doing wellincrea se ozempic 0.5 mg sc qweekf/u through portal in 4 weeks and in the office in 3 monthscont inue metformin ER 500 mg daily-peter ot tolerate higher dose but does confer some cardiovasc ular protection Thyroid fu nction tests abnormal 931469694 R94.6 numbers improved at last check, mild abnormalit y was likely due to surgery in Decrecheck labs to monitor stability [id number] Yuly Srinivasan MD [facility] Primary [facility] [address] [place] [address] 06/07/2023 16:29:44 06/07/2023 17:08:55 Hematoma of lower leg 601929010 S80.10XA improvingr eassurance given Type 2 abe betes mellitus 99433471 E11.9 doing wellincrea se ozempic to 1 mg if a1c is not at goalcontin ue metformin ER 500 mg daily-peter ot tolerate higher dose but does confer some cardiovasc ular protection f/u in 6 months or sooner if needed Anemia 673873147 D64.9 numbers improved at last check, likely due to surgery in Decrecheck labs to monitor stability [id number] Yuly Srinivasan MD [facility] Primary Care [address] [place] [address] 09/15/2023 14:21:31 09/15/2023 14:47:34 Type 2 diabetes mellitus 27422457 E11.9 doing wellincrea se ozempic to 1 mg if a1c is not at goalcontin ue metformin ER 500 mg daily-peter ot tolerate higher dose but does confer some cardiovasc ular protection f/u in 6 months or sooner if needed update 09/15/23: has not been in good control since covid earlier this monthconti nue ozempic, metformin (pt can tolerate 500 mg ER 3 per day)glipiz judah ER 10 mg daily, increase to 2 tabs if AM fasting is >300eat smaller, but more frequent meals per day with carbs + protein in each meal/snack check AM fasting blood sugar dailysend update about blood sugar readings to portal on Tuesday Vaginitis [id number] N76.0 likely due to glucosuria fluconazol e 150 mgnystatin cream bid prn [id number] Yuly Srinivasan MD [facility] Primary Care [facility] [address] [facility] [address] [place] [address] 11/02/2023 07:59:39 11/02/2023 08:25:36 Type 2 diabetes mellitus 15677048 E11.9 doing wellincrea se ozempic to 1 mg if a1c is not at goalcontin ue metformin ER 500 mg daily-peter ot tolerate higher dose but does confer some cardiovasc ular protection f/u in 6 months or sooner if needed update 09/15/23: has not been in good control since covid earlier this monthconti nue ozempic, metformin (pt can tolerate 500 mg ER 3 per day)glipiz judah ER 10 mg daily, increase to 2 tabs if AM fasting is >300eat smaller, but more frequent meals per day with carbs + protein in each meal/snack check AM fasting blood sugar dailysend update about blood sugar readings to portal on Tuesday update 11/02/23: has not been on ozempiccon tinue metformin (pt can tolerate 500 mg ER 3 per day)restar t ozempic 0.25 mg sc qweek, will titrate up to 0.5 mg in 4 weeks if toleratedc heck AM fasting blood sugar daily Cervical lymphadenopathy [id number] R59.0 will get [place] Insomnia [id number] G47.0 0 sleep hygeinetri al of trazodone 100 mg po qhs and hydroxyzin e 50 mg po qhscan use prndo not take before driving/wo rking, will cause drowsiness f/u in 3 months or sooner if needed [id number] Yuly Srinivasan MD [facility] Primary Care [facility] [address] [employer] [address] [facility] [address] [place] [address] 02/01/2024 07:59:05 02/01/2024 08:25:09 Diabetes mellitus 88120340 E11.9 not able to tolerate more than 0.25 mg sc ozempic due to gi s/ehome blood sugars are not in good controld/c ozempictri al of rybelsus 3 mg-samples givenf/u in 4 weeks or sooner if needed Screening mammography 24 [id number] Z12.31 Postmenopausal state [id number] Z78.0 [id number] Yuly Srinivasan MD [facility] Primary Care [facility] [address] [facility] [address] [place] [address] 03/13/2024 12:05:40 03/13/2024 12:43:11 Type 2 diabetes mellitus 05653246 E11.9 doing wellincrea se ozempic to 1 mg if a1c is not at goalcontin ue metformin ER 500 mg daily-peter ot tolerate higher dose but does confer some cardiovasc ular protection f/u in 6 months or sooner if needed update 09/15/23: has not been in good control since covid earlier this monthconti nue ozempic, metformin (pt can tolerate 500 mg ER 3 per day)glipiz judah ER 10 mg daily, increase to 2 tabs if AM fasting is >300eat smaller, but more frequent meals per day with carbs + protein in each meal/snack check AM fasting blood sugar dailysend update about blood sugar readings to portal on Tuesday update 11/02/23: has not been on ozempiccon tinue metformin (pt can tolerate 500 mg ER 3 per day)restar t ozempic 0.25 mg sc qweek, will titrate up to 0.5 mg in 4 weeks if toleratedc heck AM fasting blood sugar daily update 03/13/24inc rease glipizide ERplan to increase ozempic 0.5 mg sc qweekconti nue metformin 1 per dayhas failed jardiance due to recurrent vaginitis Anemia [id number] D64.9 numbers improved at last check, likely due to surgery in [place] labs to monitor stability 03/13/24: repeat labs Thyroid fu nction tests abnormal [id number] R94.6 numbers improved at last check, mild abnormalit y was likely due to surgery in Decrecheck labs to monitor stability 03/13/24: repeat labs Vitamin D deficiency 347 95928 E55.9 Postmenopa usal flushing 481873210 N95.1 has failed estroven, black cohoshhavi ng nightsweat s and flushing Hyperlipidemia 51225687 E78.5 [id number] Oscar Ruffin, BLENDER CONVEYOR OPERATOR-C [facility] Primary Care [facility] [address] [facility] [address] [place] [address] 05/21/2024 08:10:56 05/21/2024 09:47:45 [id number] Oscar Ruffin BLENDER CONVEYOR OPERATOR-C [facility] [place] [facility] [address] [facility] [address] [place] [address] 06/14/2024 07:58:30 06/14/2024 08:34:09 Type 2 diabetes mellitus [id number] E11.9 continues glipizide 10mg (2tab daily)not able to tolerate the 1mg ozempicshe would like to try mounjaro 2.5mg-sent a1c obtainedf/ u in 1 month Insomnia 462964190 G47.0 0 Type 2 abe betes mellitus without complication [id number] E11.9 Hyperlipidemia 36598597 E78.5 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 Spasm 00688975 R25.2 Postmenopa usal flushing 178682478 N95.1 Vitamin D deficiency 347 85795 E55.9 Health Concerns Section Related Observation LastModified by Organization Detai ls LastModified Time None Recorded Concern Status LastModified by Organization Details LastModified Time None Recorded Advance Directives Directive N: Payers Insurance Date Sequence Insurance Name Policy Number Policy Maher Covered Member ID Maher Member ID Guarantor Name 06/25/2024 [facility] Karime Vale SELF SELF Karime Vale 06/25/2024 1 [place]) [id number] Karime Vale [id number] Karime Vale Notes Date Note Type Note Provider Name and Address Organization Details Recorded Time 11/02/2023 text/html ROS as noted in the HPI Oct 6 had covid, and blood sugars have been very high since then. She has had blurry vision, dry mouth, vaginal itching, polyuria. Blood sugars have slowly improved since adjusting medications, blood sugar 200s this AM update 11/02/23: home blood sugars are low 200s. she has not been on ozempic for a few months. For several weeks having swelling on the right neck up to side of egg that can be uncomfortable. Got a round of abx at that helped, but it swelled up again yesterday, seems to come and go. she is struggling with insomnia even with zolpidem. Trazodone alone was not helpful. Her sister takes a combo of trazodone and hydroxyzine which is helpful. Yuly Srinivasan MD [address], [place], [address], [employer] 11/02/2023 08:24:59 02/01/2024 text/html ROS as noted in the HPI Oct 6 had covid, and blood sugars have been very high since then. She has had blurry vision, dry mouth, vaginal itching, polyuria. Blood sugars have slowly improved since adjusting medications, blood sugar 200s this AM update 11/02/23: home blood sugars are low 200s. she has not been on ozempic for a few months. For several weeks having swelling on the right neck up to side of egg that can be uncomfortable. Got a round of abx at that helped, but it swelled up again yesterday, seems to come and go. she is struggling with insomnia even with zolpidem. Trazodone alone was not helpful. Her sister takes a combo of trazodone and hydroxyzine which is helpful. update 02/01/24: Blood pressures are normal at work. Sleep is good with ambien. Blood sugars are running in 200s. She has not been able to tolerate more than 0.25 mg ozempic due to GI s/e. Yuly Srinivasan MD [address], [place], [address], [employer] 02/18/2024 09:37:11 03/13/2024 text/html ROS as noted in the HPI Oct 6 had covid, and blood sugars have been very high since then. She has had blurry vision, dry mouth, vaginal itching, polyuria. Blood sugars have slowly improved since adjusting medications, blood sugar 200s this AM update 11/02/23: home blood sugars are low 200s. she has not been on ozempic for a few months. For several weeks having swelling on the right neck up to side of egg that can be uncomfortable. Got a round of abx at that helped, but it swelled up again yesterday, seems to come and go. she is struggling with insomnia even with zolpidem. Trazodone alone was not helpful. Her sister takes a combo of trazodone and hydroxyzine which is helpful. update 02/01/24: Blood pressures are normal at work. Sleep is good with ambien. Blood sugars are running in 200s. She has not been able to tolerate more than 0.25 mg ozempic due to GI s/e. update 03/13/24: Blood sugars are 250s she [facility] to [facility], on 0.25 mg sc qweek and tolerating ok Yuly Srinivasan MD [address] [facility], [address] [place] [address], [place], [address], [employer] 04/08/2024 16:00:21 06/14/2024 text/html pt is here for f/u UZIEL Duarte [address] [facility], [facility] [address], [place], [address], [employer] 06/14/2024 08:25:52 OBGyn Episode No OBEpisode recorded.
--- OUTSIDE RECORDS SUMMARY | 2025-11-10 09:21 | XMS_ITS | Encounter Summary ---
Author Organization [facility] Address [address] [place] [id number] Care Team Providers Care Varnish Filterer Name Role Phone Yuly Srinivasan MD Primary Care Provider [phone] Layo Zavala DO Primary Care Provider Reason for Visit * Reason Onset Date Comments Schedule Procedure 08/30/2022 Encounter Details Date Type Department Care Team (Late st Contact Info) Description 08/30/2022 [employer] Message Enc [facility], [facility] [address] [place], [place] [id number] Jigar Dhaliwal MD [facility]. [facility] [address], [place] [phone] Procedure Social History Tobacco Use Types Packs/Day Years [...] as of this encounter Progress Notes * Paris Jimenez - 09/02/2022 2:00 PM CDT Dov - Patient will be faxing forms to you for her to be able to take off for her procedure. * Kelly Mcknight PA-C - 08/31/2022 11:26 AM CDT Recommend no heavy lifting >10lbs for 5-7 days. Thanks Kelly * Paris Jimenez - 08/31/2022 10:09 AM CDT Kelly - This is a patient of Dr Ndiaye. Scheduled for an SVT ablation. 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 She is asking how long she'll be off work if you could reply to her. Thanks * Paris Jimenez - 08/31/2022 8:58 AM CDTFrom: Paris Munson To: Karime Vale Sent: 08/30/2022 4:44 PM CDT Subject: Procedure Avelino Schaffer, I did get your ablation scheduled for Tue09/22/22 arrival time is 6:00 am. I have enclosed the instruction sheet. I apologize for the delay. Paris Sepulveda Your outpatient SVT ABLATION is scheduled on Tue09/22/22 at [facility]. Please report to [facility], OUTPATIENT ENTRANCE, [facility], in [place], [place] at 6:00 AM. PLEASE NOTE that your arrival and procedure time are NOT GUARANTEED EMERGENCY CASES will be done first INSTRUCTIONS: Nothing to eat or drink after midnight the night before your procedure Take a shower or bath the morning of your test or the evening before Please do not bring any valuables with you since there is not a lock on the lockers for your personal belongings Plan to spend ALL day at the hospital Take all of your regular medication with a sip of water the morning of the test EXCEPT the following: Insulin or diabetic medication Diuretic (water pill) or potassium medication STOP TAKING METOPROLOL 4 DAYS PRIOR TO THE PROCEDURE. Are you taking any type of blood thinner? NO BRING THE FOLLOWING WITH YOU: Medication or list of medication Insurance cards Advance Directives (Living Will), Durable Power of [place] (POA) List of any previous surgeries Someone who is able to drive you home Please limit to 1 family member over the age of 18 PRETESTING: BLOOD WORK WILL BE DRAWN THE MORNING OF THE PROCEDURE. If you have any questions or require further information prior to your pro cedure or are unable to keep this appointment, please notify our office at [phone] as soon as possible. Sincerely, [facility] documented in this encounter Plan of Treatment Not on file documented as of this encounter Visit Diagnoses Not on filedocumented in this encounter Care Teams Varnish Filterer Relationship Specialty Start Date End Date Yuly Srinivasan MD [address] [place] [address] [place] [address] PCP - General FAMILY PRACTICE 05/11/22 05/25/25 Layo Zavala DO [address] [facility] [place] [address] PCP - General FAMILY PRACTICE 05/26/25 documented as of this encounter
[2025-11-10 10:34] LABS: Estimated Glomerular Filt Rate > 60
== END 2025-11-10 09:18 | disposition home or self-care (01) ==
PROVIDERS: PCP Family Medicine; Visit Provider Family Medicine
DX: R91.1 Solitary pulmonary nodule (principal)
CPT/HCPCS: 71260; Q9967